=== PATIENT | female | born 1975 | race Caucasian/White ===

== ENCOUNTER → 2016-10-30 | Outpatient (CLI) | payer OTHER ==
--- NOTE | 2016-10-30 14:50 | REP ---
PELVIC ULTRASOUND: Real-time sonographic evaluation of the pelvis performed utilized transabdominal and endovaginal technique. Bladder measures 11.4 x 8.4 x 11.3 cm. Uterus measures 7.0 x 3.7 x 5.1 cm. Endometrial thickness is 2 mm. In the lower uterine segment there is a focal hyperechoic area 8 mm in diameter which may represent and endometrial polyp. Blood flow is seen into this region with duplex Doppler evaluation. Uterus is retroverted. Right ovary measures 3.0 x 1.5 x 2.5 cm and left ovary 2.8 x 1.1 x 2.4 cm. There is no evidence of ovarian torsion or blood flow seen in each ovary with duplex Doppler evaluation, RI of the right ovary 0.87 and left ovary 0.65. Small paraovarian cystic structure on the left measures 8 x 6 x 9 mm. There is no free fluid. There is a posterior subserosal fibroid identified measuring 1.3 x 0.7 x 1.6 cm. IMPRESSION: Small posterior subserosal fibroid. Focal hyperechoic area in the endometrium of the lower uterine segment and may represent an endometrial polyp 8 mm in diameter. Trace fluid in the endometrial cavity. No torsion. Signed by Darin Levi MD 10/31/2016 09:46 A
== END ==
LOC: M RAD 11:33
PROVIDERS: ATTEND Physician Assistant
DX: N93.9 Abnormal uterine and vaginal bleeding, unspecified (principal)

== ENCOUNTER → 2016-10-30 | Outpatient (CLI) | payer OTHER ==
[2016-10-30 10:29] LABS: BASO % 0.4 % (0.0-1.0); EOS # 0.3 K/mm3 (0.0-0.50); EOS % 3.9 % (0.0-3.0); LARGE UNSTAINED CELL # 0.1 K/mm3 (0.0-0.4); LYMPH # 1.8 K/mm3 (1.5-4.5); LYMPH % 22.8 % (24.0-44.0); MEAN CORPUSCULAR HEMOGLOBIN 28.1 pg (27.0-33.0); MEAN CORPUSCULAR HGB CONC 32.5 g/dl (32.0-36.5); MEAN CORPUSCULAR VOLUME 86.6 fl (80.0-96.0); MONO # 0.4 K/mm3 (0.0-0.8); MONO % 4.7 % (0.0-5.0); NEUTROPHILS # 5.1 K/mm3 (1.8-7.7); NEUTROPHILS % 67.3 % (36.0-66.0); PLATELET COUNT, AUTOMATED 312 k/mm3 (150-450); RED CELL DISTRIBUTION WIDTH 14.7 % (11.5-14.5); WHITE BLOOD COUNT 7.5 K/mm3 (4.0-10.0)
[2016-10-30 10:54] LABS: PERCENT SATURATION 10.7 % (13.2-37.4)
== END ==
LOC: M LAB 09:50
PROVIDERS: ATTEND Physician Assistant
DX: N93.9 Abnormal uterine and vaginal bleeding, unspecified (principal)

== ENCOUNTER → 2016-11-13 | Outpatient (REF) | payer OTHER ==
[2016-11-13 18:58] LABS: FOLLICLE STIMULATING HORMONE 2.5 mIU/mL; LUTEINIZING HORMONE 1.5 mIU/mL
[2016-11-13 19:01] LABS: HCG, SERUM QUANTITATIVE < 1.0 MIU/ML
[2016-11-13 19:20] LABS: BASO % 0.5 % (0.0-1.0); EOS # 0.6 K/mm3 (0.0-0.50); EOS % 5.2 % (0.0-3.0); LARGE UNSTAINED CELL # 0.2 K/mm3 (0.0-0.4); LARGE UNSTAINED CELL % 1.4 % (0.0-4.0); LYMPH # 2.5 K/mm3 (1.5-4.5); LYMPH % 22.1 % (24.0-44.0); MEAN CORPUSCULAR HEMOGLOBIN 28.4 pg (27.0-33.0); MEAN CORPUSCULAR HGB CONC 31.9 g/dl (32.0-36.5); MEAN CORPUSCULAR VOLUME 88.8 fl (80.0-96.0); MONO # 0.4 K/mm3 (0.0-0.8); MONO % 3.8 % (0.0-5.0); NEUTROPHILS # 7.3 K/mm3 (1.8-7.7); PLATELET COUNT, AUTOMATED 318 k/mm3 (150-450)
[2016-11-14 14:51] LABS: WHITE BLOOD COUNT 10.9 K/mm3 (4.0-10.0)
== END ==
LOC: M LAB REF 16:49
PROVIDERS: ATTEND Obstetrics & Gynecology
DX: N92.0 Excessive and frequent menstruation with regular cycle (principal)

== ENCOUNTER 2017-02-26 05:39 | Day surgery (SDC) | payer OTHER ==
[~2017-02-26] VITALS: Ht 167.6 cm; Wt 95.7 kg
[~2017-02-26 05:39] MED LIST: ADV250INH INH; ALBU17IN INH; IRON65TA PO; LORA10TA2 PO; MULT1TAB10 PO; TYLE325T5 PO; birth control pill PO
[2017-02-26] MEDS ORDERED: LR 1,000 ML IV ONE (06:00)
[2017-02-26] MEDS ORDERED: CLINDAMYCIN 900 MG in APPROPRIATE DILUENT 1 EA IV ONE (06:00)
[2017-02-26] MEDS ORDERED: ACETAMINOPHEN 650 MG SUPP PR ONE (06:00)
[2017-02-26 06:12] LABS: MEAN CORPUSCULAR HEMOGLOBIN 29.7 pg (27.0-33.0); MEAN CORPUSCULAR HGB CONC 33.7 g/dl (32.0-36.5); MEAN CORPUSCULAR VOLUME 88.3 fl (80.0-96.0); RED CELL DISTRIBUTION WIDTH 14.5 % (11.5-14.5); WHITE BLOOD COUNT 7.4 K/mm3 (4.0-10.0)
[2017-02-26 07:56] LABS: CONTROL LINE UCG INT CTR LINE PRESENT
[2017-02-26] MEDS ORDERED: ALBUTEROL SULFATE 2.5 MG/0.5 ML INH NEB SOLN As Ordered ONE (08:36)
[2017-02-26] MEDS ORDERED: SCOPOLAMINE 1.5 MG TRANSDERMAL As Ordered ONE (08:36)
[2017-02-26] MEDS ORDERED: SCOPOLAMINE 1.5 MG TRANSDERMAL TOP ONE (08:45)
[2017-02-26] MEDS ORDERED: ALBUTEROL SULFATE 2.5 MG/0.5 ML INH NEB SOLN INH ONE (08:45)
[2017-02-26] MEDS ORDERED: PROPOFOL 200 MG/20 ML VIAL As Ordered ONE (09:03)
[2017-02-26] MEDS ORDERED: ONDANSETRON 4MG/2ML VIAL (J2405) As Ordered ONE (09:03)
[2017-02-26] MEDS ORDERED: LIDOCAINE 2% INJ 100 MG/5 ML SDV (FOR ANES.) As Ordered ONE (09:03)
[2017-02-26] MEDS ORDERED: ROCURONIUM BROMIDE 50 MG/5 ML VIAL As Ordered ONE ×2 (09:03→13:00)
[2017-02-26] MEDS ORDERED: MIDAZOLAM INJ 2 MG/2 ML VIAL (J2250) As Ordered ONE (09:04)
[2017-02-26] MEDS ORDERED: fentaNYL 100 MCG/2 ML INJECTION (J3010) As Ordered ONE ×3 (09:04→12:59)
[2017-02-26] MEDS ORDERED: FLUORESCEIN 10% (100MG/ML) 5 ML VIAL As Ordered ONE (09:05)
[2017-02-26] MEDS ORDERED: BUPIVACAINE/EPIN 0.25% 30 ML VIAL As Ordered ONE (09:06)
[2017-02-26] MEDS ORDERED: ACETAMINOPHEN 650 MG SUPP As Ordered ONE (09:06)
[2017-02-26] MEDS ORDERED: OXYC1TAB23 PO (09:59)
[2017-02-26] MEDS: IBUPROFEN 800 MG TAB PO SCH ×3 (12:00→23:36)
[2017-02-26] MEDS: SIMETHICONE 80 MG CHEW TAB PO SCH ×3 (12:00→23:36)
[2017-02-26] MEDS ORDERED: SUGAMMADEX SODIUM 500 MG/5 ML VIAL (BRIDION) As Ordered ONE (13:00)
[2017-02-26] MEDS ORDERED: KETOROLAC 60 MG/2 ML VIAL (J1885) As Ordered ONE (13:00)
[2017-02-26] MEDS: fentaNYL 100 MCG/2 ML INJECTION (J3010) IV PRN ×4 (13:02→13:25)
[2017-02-26] MEDS ORDERED: PROMETHAZINE INJ 25 MG/ML VIAL (J2550) IV PRN (13:15)
[2017-02-26] MEDS ORDERED: diphenhydrAMINE INJ 50MG/ML VIAL (J1200) IV PRN (13:15)
[2017-02-26] MEDS ORDERED: LR 1,000 ML IV SCH (13:15)
[2017-02-26] MEDS ORDERED: PERCOCET 5MG/325MG TAB PO PRN (13:15)
[2017-02-26] MEDS ORDERED: ONDANSETRON 4MG/2ML VIAL (J2405) IV PRN (13:15)
[2017-02-26] MEDS: LR 1,000 ML IV SCH ×2 (13:15→21:15)
[2017-02-26] MEDS ORDERED: METOCLOPRAMIDE INJ 10MG/2ML VIAL (J2765) IV PRN (13:15)
[2017-02-26] MEDS: HYDROmorphone HCL 1 MG/ML SYRINGE (J1170) IV PRN ×5 (13:35→14:05)
[2017-02-26 15:15] VITALS: BP 130/74
[2017-02-26 15:45] VITALS: BP 127/74
[2017-02-26 16:45] VITALS: BP 140/88
[2017-02-26 17:45] VITALS: BP 114/72
[2017-02-26 18:45] VITALS: BP 122/58
[2017-02-26 20:00] VITALS: BP 102/58
[2017-02-27] VITALS: BP 114/61
[2017-02-27 04:00] VITALS: BP 111/68
[2017-02-27] MEDS: PERCOCET 5MG/325MG TAB PO PRN ×2 (05:10→11:23)
[2017-02-27] MEDS: LR 1,000 ML IV SCH (05:15)
[2017-02-27] MEDS: IBUPROFEN 800 MG TAB PO SCH (06:16)
[2017-02-27] MEDS: SIMETHICONE 80 MG CHEW TAB PO SCH (06:16)
[2017-02-27 08:00] VITALS: BP 131/66
[2017-02-27] MEDS ORDERED: IBUP80TA PO (10:09)
--- NOTE | 2017-02-27 18:00 | RO ---
DATE OF PROCEDURE: 02/26/2017 Elisabeth is a 41-year-old female with extensive history of menometrorrhagia, fibroid uterus and endometrial polyp. After extensive counseling in the office a decision was made for robotic-assisted laparoscopic hysterectomy, removal of both tubes, possible hystereocopy. PREOPERATIVE DIAGNOSES: 1. Menometrorrhagia. 2. Fibroid uterus. 3. Endometrial polyp. POSTOPERATIVE DIAGNOSES: 1. Menometrorrhagia. 2. Fibroid uterus. 3. Endometrial polyp. 4. Dense bowel and omental adhesion to the anterior abdominal wall underneath the umbilicus. PROCEDURE: 1. Robotic-assisted laparoscopic hysterectomy. 2. Bilateral salpingectomies. 3. Cystoscopy. 4. Extensive lysis of adhesion. ANESTHESIA: General. SURGEON: Dr. Kent. HEAD OF DATA: Berna Shoemaker. COMPLICATIONS: None. ESTIMATED BLOOD LOSS: Approximately 100 mL. SPECIMEN SENT TO THE LAB: The uterus, cervix and tube. FINDINGS: Dense omental and bowel adhesions underneath the umbilicus down to the pelvic ball covering the lower pelvis. It took approximately 1 hour to dissect the adhesions down. On cystoscopy bilateral urethral jets were noted. No evidence of any bladder or urethral injury. PROCEDURE: After obtaining informed consent the patient was taken to the operating room where general anesthetic was found be adequate. She was then draped and prepped usual sterile fashion in the dorsal lithotomy position. At this point a Garvey catheter was placed in the bladder for drainage. We then placed the HUMI II uterine manipulator. Attention was then turned to the abdomen where a 10 mm infraumbilical incision was made using the Veress needle. The abdomen was insufflated with CO2 gas to approximately 3.5 liters. We then placed a 10/12 mm trocar under direct visualization for the robotic camera. Upon entering the abdominal cavity. Dense omental adhesions was found at the level of the umbilicus all the way down to the pelvis. We were able to put one 8 mm incision on the left side for robotic arm two. After placement of that arm. It was noted that the adhesions were so thick we could not assist port nor the robotic arm one. Using the Endo shear, blunt dissection was done to bring down the omental adhesions. Cautery was used where necessary. In the mid abdominal area, I was able to place another 8 mm port on the right side for robotic arm one. Using that port and a 5 mm scope we continued to dissect the omental and bowel adhesions down. This took approximately 1 hour to take down the adhesions. After freeing all the adhesions were then able to place the patient in steep Trendelenburg. The uterus, ovaries and tubes were identified. The tube was found to be somewhat adherent to the right pelvic sidewall. This was also freed up using the Endo shear. At this point the patient was placed in steep Trendelenburg. The robot was brought at a 45 degree angle at the right side and docked in usual fashion. In arm two, a bipolar grasper was placed and in arm one, the Endo shear was placed. I then unscrubbed and surgeon console and began the surgery. The infundibulopelvic ligament was visualized. The fallopian tube visualized, utero-ovarian ligament visualized. At this point the fallopian tube was held in tension. The mesosalpinx was transected to bring down the fallopian tube down to the utero-ovarian ligament. This was cauterized and cut using the bipolar grasper and the Endo shear. The round ligament was cauterized and cut in similar fashion. At this point the anterior leaflet of the broad ligament was dissected off to create a bladder flap. The posterior aspect dissected off in a similar fashion. Uterine artery skeletonized and the uterine artery was then cauterized using the bipolar grasper. This was also transected using the monopolar scissors. The opposite side was done in a similar fashion. After securing both the uterine arteries, we then pushed the bladder off the cervix and the anterior colpotomy was performed over the vaginal cuff manipulator. The posterior colpotomy was also completed in similar fashion. At this point the uterus and cervix as well as bilateral fallopian tubes were removed through the vagina. This was left in the vagina to maintain pneumoperitoneum. Pelvis copiously irrigated with normal saline and suctioned out. Good hemostasis noted. No evidence of any bleeding noted and bilateral ureters appeared to be within normal limits. The bladder shows no signs of injury. At this point the Endo shear was removed. Needle dumpster driver was placed and a 2-0 V-Loc suture was introduced through the assist port and the vaginal cuff closed in a running fashion using the 2-0 V-Loc suture. The peritoneum over the vaginal cuff was also closed. Good hemostasis noted. The suture was removed through the assist port and 1 mL of Furacin was given by the anesthesiologist for colposcopy. The robot was completely undocked. The bladder was retrograde filled with 250 mL of normal saline. Using a cystoscope after removal of the catheter bilateral urethral jets were noted. No evidence of any bladder injury noted in cystoscopy. The Garvey catheter was replaced back in the bladder for drainage and we then turned our attention to the abdomen where the robotic trocar sites were closed using #0 Vicryl in the fascia and #3-0 Vicryl in a subcuticular fashion on the skin. 0.25% Marcaine placed for postoperative pain. Dermabond placed to seal the incisions. The patient was then transferred to recovery room in stable condition.
== END 2017-02-27 11:50 | disposition home or self-care (01) ==
LOC: M SDC 05:39 → M PED 15:02 → M SDC 02-27 11:50
PROVIDERS: ATTEND Obstetrics & Gynecology
DX: N91.2 Amenorrhea, unspecified (principal); N73.6 Female pelvic peritoneal adhesions (postinfective); N80.0 Endometriosis of uterus; N84.0 Polyp of corpus uteri; N72 Inflammatory disease of cervix uteri; K21.9 Gastro-esophageal reflux disease without esophagitis; D64.9 Anemia, unspecified; J45.909 Unspecified asthma, uncomplicated; Z79.899 Other long term (current) drug therapy; Z88.0 Allergy status to penicillin; Z88.2 Allergy status to sulfonamides; Z91.030 Bee allergy status
CPT/HCPCS: 36415; 49329; 58571; 84703; 85027; 86850; 86900; 86901; 88309; J1170; J1885; J2250; J2405; J3010

== ENCOUNTER → 2017-04-22 | Outpatient (CLI) | payer OTHER ==
[~2017-04-22] MED LIST changes: +IBUP80TA PO; +OXYC1TAB23 PO
[2017-04-22 11:16] LABS: BASO % 0.4 % (0.0-1.0); EOS # 0.3 K/mm3 (0.0-0.50); EOS % 3.9 % (0.0-3.0); LYMPH # 1.8 K/mm3 (1.5-4.5); LYMPH % 20.6 % (24.0-44.0); MEAN CORPUSCULAR HEMOGLOBIN 29.2 pg (27.0-33.0); MEAN CORPUSCULAR HGB CONC 33.5 g/dl (32.0-36.5); MEAN CORPUSCULAR VOLUME 87.3 fl (80.0-96.0); MONO # 0.4 K/mm3 (0.0-0.8); MONO % 4.5 % (0.0-5.0); NEUTROPHILS # 5.8 K/mm3 (1.8-7.7); NEUTROPHILS % 69.6 % (36.0-66.0); RED CELL DISTRIBUTION WIDTH 14.9 % (11.5-14.5); WHITE BLOOD COUNT 8.3 K/mm3 (4.0-10.0)
--- NOTE | 2017-04-22 11:19 | REP ---
Chest two views HISTORY: Chest pain Comparison: None The lungs are clear. The heart is normal in size. The pulmonary vasculature is normal in appearance. The bony structure is intact. IMPRESSION: No acute disease. Signed by Fabio Pisano MD 04/22/2017 11:11 A
[2017-04-22 12:58] LABS: ALBUMIN 3.8 GM/DL (3.2-5.2); ALBUMIN/GLOBULIN RATIO 1.09 (1.00-1.93); ALKALINE PHOSPHATASE 78 U/L (45-117); ALT/SGPT 53 U/L (12-78); ANION GAP 8 MEQ/L (8-16); AST/SGOT 27 U/L (15-37); BILIRUBIN,TOTAL 0.6 MG/DL (0.2-1.0); BLOOD UREA NITROGEN 8 MG/DL (7-18); CALCIUM LEVEL 9.1 MG/DL (8.5-10.1); CARBON DIOXIDE LEVEL 27 MEQ/L (21-32); CHLORIDE LEVEL 106 MEQ/L (98-107); CHOLESTEROL LEVEL 161 MG/DL (<200); CREATININE FOR GFR 0.85 MG/DL (0.55-1.02); GLOMERULAR FILTRATION RATE > 60.0 (>58); GLUCOSE, FASTING 116 MG/DL (70-105); POTASSIUM SERUM 4.2 MEQ/L (3.5-5.1); SODIUM LEVEL 141 MEQ/L (136-145); T UPTAKE 28 % (30-39); THYROXINE (T4) 10.8 UG/DL (4.5-12.0); TOTAL PROTEIN 7.3 GM/DL (6.4-8.2); TRIGLYCERIDES LEVEL 147 MG/DL (<150)
--- NOTE | 2017-04-23 22:25 | ECGEPIP ---
Stationary ECG Study [facility] Test Date: 2017-04-22 Pat Name: LEOBARDO MANN Department: Room: - Gender: F Group Social Worker: KATHY : 1975 Requested By: Lala Chino Order Number: [id number] Reading MD: Roberto Contreras Measurements Intervals [place] Rate: 58 P: 29 MT: 145 QRS: -8 QRSD: 105 T: 5 QT: 415 QTc: 408 Interpretive Statements SINUS BRADYCARDIA NO PRIOR TRACING IN THE SYSTEM Electronically Signed On 04-23-2017 22:25:01 EDT by Roberto Contreras
== END ==
LOC: M LAB 10:35
PROVIDERS: ATTEND Physician Assistant Medical
DX: R07.9 Chest pain, unspecified (principal)

== ENCOUNTER → 2017-12-12 | Outpatient (REF) | payer OTHER ==
[2017-12-12 16:32] LABS: HEMATOCRIT 39.2 % (36.0-47.0); HEMOGLOBIN 12.9 g/dl (12.0-15.5); MEAN CORPUSCULAR HEMOGLOBIN 29.9 pg (27.0-33.0); MEAN CORPUSCULAR HGB CONC 32.9 g/dl (32.0-36.5); PLATELET COUNT, AUTOMATED 292 10^3/uL (150-450); RED BLOOD COUNT 4.31 10^6/uL (4.00-5.40); RED CELL DISTRIBUTION WIDTH 13.3 % (11.5-14.5); WHITE BLOOD COUNT 10.8 10^3/uL (4.0-10.0)
[2017-12-12 16:39] LABS: TOTAL 25(OH) VITAMIN D 18.6 NG/ML (30.0-100.0)
[2017-12-12 16:47] LABS: ALBUMIN 3.9 GM/DL (3.2-5.2); ALBUMIN/GLOBULIN RATIO 1.15 (1.00-1.93); ALKALINE PHOSPHATASE 77 U/L (45-117); ALT/SGPT 23 U/L (12-78); ANION GAP 6 MEQ/L (8-16); AST/SGOT 20 U/L (7-37); BILIRUBIN,TOTAL 1.2 MG/DL (0.2-1.0); BLOOD UREA NITROGEN 8 MG/DL (7-18); CALCIUM LEVEL 8.9 MG/DL (8.5-10.1); CARBON DIOXIDE LEVEL 29 MEQ/L (21-32); CHLORIDE LEVEL 107 MEQ/L (98-107); CREATININE FOR GFR 0.74 MG/DL (0.55-1.30); FREE T4 0.91 NG/DL (0.76-1.46); GLOMERULAR FILTRATION RATE > 60.0 (>58); GLUCOSE, FASTING 81 MG/DL (70-100); POTASSIUM SERUM 4.1 MEQ/L (3.5-5.1); SODIUM LEVEL 142 MEQ/L (136-145); TOTAL PROTEIN 7.3 GM/DL (6.4-8.2)
[2017-12-12 17:17] LABS: HIV 1&2 SCREEN CENTAUR NEGATIVE (NEGATIVE)
== END ==
LOC: M SFHCPLAZ 14:27
DX: F33.1 Major depressive disorder, recurrent, moderate (principal); R53.83 Other fatigue
CPT/HCPCS: 84443

== ENCOUNTER → 2018-11-03 | Outpatient (REF) | payer OTHER ==
[~2018-11-03] MED LIST changes: +LORA-243 PO; -LORA10TA2 PO
[2018-11-03 19:17] LABS: APPEARANCE, URINE CLEAR (CLEAR); BACTERIA, URINE AUTO NEGATIVE (NEGATIVE); BILIRUBIN, URINE AUTO NEGATIVE (NEGATIVE); BLOOD, URINE BLOOD NEGATIVE (NEGATIVE); COLOR, URINE YELLOW (YELLOW); GLUCOSE, URINE (UA) AUTO NEGATIVE (NEGATIVE); KETONE, URINE AUTO NEGATIVE (NEGATIVE); LEUKOCYTE ESTERASE, URINE AUTO NEGATIVE (NEGATIVE); MUCUS, URINE SMALL (NEGATIVE); NITRITE, URINE AUTO NEGATIVE (NEGATIVE); PROTEIN, URINE AUTO NEGATIVE (NEGATIVE); RBC, URINE AUTO 1 /HPF (0-3); SPECIFIC GRAVITY URINE AUTO 1.013 (1.002-1.035); SQUAMOUS EPITHELIAL CELL UR AU 2 /HPF (0-6); UROBILINOGEN, URINE AUTO 0.2 mg/dL (0.0-2.0); WBC, URINE AUTO 1 /HPF (0-3)
[2018-11-03 19:53] LABS: MAGNESIUM LEVEL 2.6 MG/DL (1.8-2.4)
[2018-11-03 20:01] LABS: TOTAL 25(OH) VITAMIN D 17.2 NG/ML (30.0-100.0)
[2018-11-03 23:08] LABS: CHLAMYDIA DNA AMPLIFICATION NEGATIVE (NEGATIVE); GC DNA AMPLIFICATION NEGATIVE (NEGATIVE)
== END ==
LOC: M SFHCPLAZ 14:19
PROVIDERS: ATTEND Nurse Practitioner Family
DX: E55.9 Vitamin D deficiency, unspecified (principal); Z11.3 Encounter for screening for infections with a predominantly sexual mode of transmission; N39.3 Stress incontinence (female) (male)

== ENCOUNTER 2020-10-18 10:22 | Emergency (ER) | payer OTHER ==
[~2020-10-18] VITALS: Ht 167.6 cm; Wt 85.7 kg
[2020-10-18] MEDS ORDERED: ACETAMINOPHEN 325 MG TAB PO ONE (11:30)
[2020-10-18] MEDS ORDERED: NEOSPORIN OINT 0.9 GM PKT TOP ONE (11:30)
[2020-10-18] MEDS ORDERED: ONDANSETRON 4 MG ORAL DISINTEGRATING TAB PO ONE (11:30)
--- NOTE | 2020-10-18 11:31 | REP ---
INDICATION: trauma, pain over 1st mcp. COMPARISON: None. TECHNIQUE: Four views of the right hand are obtained. FINDINGS: Four views of the right hand demonstrate normal bones, joints, and soft tissues. No fracture or subluxation is seen. No opaque foreign body noted. IMPRESSION: Negative right hand series. <Electronically signed by Saw Woodward > 10/18/20 [id number]
--- NOTE | 2020-10-18 11:47 | REP ---
INDICATION: posterior head trauma, +LOC. COMPARISON: None. TECHNIQUE: Helical scanning is acquired. 5 mm axial images were reformatted. Coronal MPR images were generated. FINDINGS: Bone window settings demonstrate an intact bony calvarium. There is no evidence of skull fracture or incidental bony calvarial lesion. The visualized paranasal sinuses appear clear. No intraorbital abnormality is seen. On soft tissue window setting images; the lateral, third, and fourth ventricles are normal in size and position. Levi-white differentiation pattern is normal above and below the tentorium. There are is no evidence of intracranial hemorrhage. No mass, edema, infarction, or midline shift is seen. No extra-axial fluid collection is appreciated. IMPRESSION: Negative noncontrast head CT. <Electronically signed by Saw Woodward > 10/18/20 [id number]
--- NOTE | 2020-10-18 11:48 | REP ---
INDICATION: trauma. COMPARISON: None. TECHNIQUE: Helical scanning is acquired and overlapping 2 mm high resolution axial images were generated and reviewed at bone and soft tissue window settings. Coronal and sagittal multiplanar re-formations images are generated. FINDINGS: There is no evidence of cervical spine element fracture. No skull base fracture is seen. Cervical vertebral body heights are preserved. Alignment is normal. Facet joints are normally aligned bilaterally at each cervical level on multiplanar re-formations images. There is no evidence of intraspinal or paraspinal hematoma. No extra vertebral abnormality is seen. IMPRESSION: Negative CT study of the cervical spine without contrast. No fracture seen. <Electronically signed by Saw Woodward > 10/18/20 0036
[2020-10-18] MEDS ORDERED: ONDA4TAB6 PO (12:18)
[2020-10-18 12:25] VITALS: BP 134/81
== END 2020-10-18 12:33 | disposition home or self-care (01) ==
LOC: M ED 10:22
DX: S06.0X9A Concussion with loss of consciousness of unspecified duration, initial encounter (principal); S60.511A Abrasion of right hand, initial encounter; S63.90XA Sprain of unspecified part of unspecified wrist and hand, initial encounter; W01.198A Fall on same level from slipping, tripping and stumbling with subsequent striking against other object, initial encounter; Y92.019 Unspecified place in single-family (private) house as the place of occurrence of the external cause; Y93.9 Activity, unspecified; Y99.9 Unspecified external cause status; Z88.0 Allergy status to penicillin; Z88.2 Allergy status to sulfonamides; Z91.013 Allergy to seafood; Z91.030 Bee allergy status
CPT/HCPCS: 70450; 72125; 73130; 99284; Q0162

== ENCOUNTER 2021-01-18 09:58 | Emergency (ER) | payer OTHER ==
[~2021-01-18] VITALS: Ht 165.1 cm; Wt 83.6 kg
[~2021-01-18 09:58] MED LIST changes: +ONDA4TAB6 PO
[2021-01-18 12:05] LABS: BASO # 0.1 10^3/uL (0.0-0.2); BASO % 0.6 % (0.0-1.0); EOS # 0.6 10^3/uL (0.0-0.5); EOS % 5.3 % (0.0-3.0); HEMATOCRIT 41.5 % (36.0-47.0); HEMOGLOBIN 13.6 g/dl (12.0-15.5); LYMPH # 2.1 10^3/uL (1.5-5.0); LYMPH % 19.5 % (24.0-44.0); MEAN CORPUSCULAR HEMOGLOBIN 30.8 pg (27.0-33.0); MEAN CORPUSCULAR HGB CONC 32.8 g/dl (32.0-36.5); MEAN CORPUSCULAR VOLUME 93.9 fl (80.0-96.0); MONO # 0.6 10^3/uL (0.0-0.8); NEUTROPHILS # 7.3 10^3/uL (1.5-8.5); NEUTROPHILS % 68.1 % (36.0-66.0); PLATELET COUNT, AUTOMATED 323 10^3/uL (150-450); RED BLOOD COUNT 4.42 10^6/uL (4.00-5.40); WHITE BLOOD COUNT 10.7 10^3/uL (4.0-10.0)
[2021-01-18 12:59] VITALS: BP 117/77
--- NOTE | 2021-01-18 17:12 | ECGEPIP ---
[facility] - ED Test Date: 2021-01-18 Pat Name: LEOBARDO MANN Department: Room: - Gender: Female Disability Rater: FADIA : 1975 Requested By: Kay Vail Order Number: [id number] Reading MD: Slade Ellsworth Measurements Intervals [place] Rate: 58 P: 42 NH: 142 QRS: -17 QRSD: 98 T: 30 QT: 424 QTc: 416 Interpretive Statements Sinus bradycardia Similar to tracing done 04-22-17 Electronically Signed on 01-18-2021 17:12:19 EDT by Slade Ellsworth
== END 2021-01-18 13:13 | disposition home or self-care (01) ==
LOC: M ED 09:58
DX: R51.9 Headache, unspecified (principal); R00.2 Palpitations; R00.1 Bradycardia, unspecified; J30.1 Allergic rhinitis due to pollen; Z91.013 Allergy to seafood; Z91.030 Bee allergy status; Z88.0 Allergy status to penicillin; Z88.2 Allergy status to sulfonamides

== ENCOUNTER → 2021-01-25 | Outpatient (REF) | payer OTHER ==
[2021-01-25 17:57] LABS: FREE T4 0.82 NG/DL (0.76-1.46); THYROID STIMULATING HORMONE 0.857 uIU/ML (0.358-3.740)
== END ==
LOC: M SFHCPLAZ 14:51
PROVIDERS: ATTEND Nurse Practitioner Family
DX: E55.9 Vitamin D deficiency, unspecified (principal); R00.2 Palpitations

== ENCOUNTER 2021-02-15 14:30 | Emergency (ER) | payer OTHER ==
[~2021-02-15] VITALS: Ht 167.6 cm; Wt 63.6 kg
--- NOTE | 2021-02-15 15:02 | REP ---
INDICATION: neuro sx COMPARISON: 10/18/2020 TECHNIQUE: Axial noncontrast images from the skull base to the vertex with coronal reformations. This CT examination was performed using the following dose reduction techniques: Automated exposure control, adjustment of mA and/or kv according to the patient's size, and use of iterative reconstruction technique. FINDINGS: The ventricles, sulci, and cisterns are normal in position and appearance. Levi-white differentiation is maintained. No acute intracranial hemorrhage, mass/mass effect, pathology or trauma/injury. No evidence for acute infarction. No extra-axial fluid collection. Calvarium is intact. Paranasal sinuses and mastoid air cells are clear. IMPRESSION: Normal noncontrast head CT. No evidence for acute intracranial pathology or trauma/injury. <Electronically signed by David Darden > 02/15/21 [id number]
[2021-02-15] MEDS ORDERED: CALC600T57 (15:46)
[2021-02-15] MEDS ORDERED: ASPI81TA26 PO (15:46)
[2021-02-15] MEDS ORDERED: VITA50005 (15:46)
[2021-02-15 15:57] LABS: BASO # 0.1 10^3/uL (0.0-0.2); BASO % 0.8 % (0.0-1.0); EOS # 0.4 10^3/uL (0.0-0.5); EOS % 4.4 % (0.0-3.0); HEMATOCRIT 36.8 % (36.0-47.0); HEMOGLOBIN 12.4 g/dl (12.0-15.5); LYMPH # 2.3 10^3/uL (1.5-5.0); LYMPH % 26.5 % (24.0-44.0); MEAN CORPUSCULAR HEMOGLOBIN 30.9 pg (27.0-33.0); MEAN CORPUSCULAR HGB CONC 33.7 g/dl (32.0-36.5); MEAN CORPUSCULAR VOLUME 91.8 fl (80.0-96.0); MONO # 0.6 10^3/uL (0.0-0.8); NEUTROPHILS # 5.4 10^3/uL (1.5-8.5); NEUTROPHILS % 60.8 % (36.0-66.0); PLATELET COUNT, AUTOMATED 321 10^3/uL (150-450); RED BLOOD COUNT 4.01 10^6/uL (4.00-5.40); WHITE BLOOD COUNT 8.8 10^3/uL (4.0-10.0)
--- NOTE | 2021-02-15 15:59 | REP ---
INDICATION: CVA. COMPARISON: 04/22/2017. TECHNIQUE: Single portable AP view of the chest was performed. FINDINGS: There is no acute infiltrate or pulmonary edema. Lungs are clear. The heart is not significantly enlarged. The mediastinal silhouette is unremarkable. The visualized osseous structures are intact. IMPRESSION: No acute pulmonary disease. <Electronically signed by Darin Levi > 02/15/21 [id number]
[2021-02-15 16:23] LABS: BLOOD UREA NITROGEN 13 MG/DL (7-18); CALCIUM LEVEL 9.2 MG/DL (8.5-10.1); CARBON DIOXIDE LEVEL 28 MEQ/L (21-32); CHLORIDE LEVEL 108 MEQ/L (98-107); CK-MB VALUE MASS 2.3 NG/ML (<3.6); CPK CREATINE PHOSPHOKINASE 391 U/L (26-192); CREATININE FOR GFR 0.79 MG/DL (0.55-1.30); GLOMERULAR FILTRATION RATE > 60.0 (>58); GLUCOSE, FASTING 90 MG/DL (70-100); MB/CK RELATIVE INDEX 0.59 (< OR =4); POTASSIUM SERUM 3.6 MEQ/L (3.5-5.1); SODIUM LEVEL 142 MEQ/L (136-145); TROPONIN I < 0.02 NG/ML (< 0.10)
[2021-02-15 20:00] VITALS: BP 135/87
--- NOTE | 2021-02-15 20:05 | ECGEPIP ---
[facility] - ED Test Date: 2021-02-15 Pat Name: LEOBARDO MANN Department: Room: - Gender: Female Legal Contracts Specialist: : 1975 Requested By: NICOLAS Marquez Order Number: [id number] Reading MD: Finn Mendoza Measurements Intervals [place] Rate: 62 P: 20 [place]: 142 QRS: -12 QRSD: 96 T: 21 QT: 450 QTc: 456 Interpretive Statements Normal sinus rhythm POOR R WAVE PROGRESSION SIMILAR TO 01/18/21 Electronically Signed on 02-15-2021 20:05:13 EDT by Finn Mendoza
--- NOTE | 2021-02-15 21:28 | REPVR ---
PROCEDURE INFORMATION: Exam: MRA Head Without Contrast; Arteriography Exam date and time: 02/15/2021 4:47 PM Age: 45 years old Clinical indication: Numbness; Additional info: Right sided facial numbness; Multiple vague neuro SX; ? Ms TECHNIQUE: Imaging protocol: Magnetic resonance angiography head without contrast. Exam focused on the arteries. COMPARISON: CT Head without contrast 02/15/2021 2:52 PM FINDINGS: There is normal [id number] flow related signal intensity in the bilateral distal internal carotid arteries through the carotid termini as well as within the distal segments of the vertebral arteries. Normal flow related signal intensity within the basilar artery, anterior, middle and posterior cerebral arteries. No high-grade stenosis, occlusion, aneurysm, or other acute abnormality of the [place] vasculature. IMPRESSION: No high-grade stenosis, occlusion, or aneurysm of the [place] vasculature. Electronically signed by: Duglas Batista On 02/15/2021 21:27:53 PM
--- NOTE | 2021-02-15 21:34 | REPVR ---
PROCEDURE INFORMATION: Exam: MR Head Without Contrast Exam date and time: 02/15/2021 4:47 PM Age: 45 years old Clinical indication: Numbness / parasthesia; Right; Additional info: Right sided facial numbness; Multiple vague neuro SX; ? Ms TECHNIQUE: Imaging protocol: MR of the head without contrast. COMPARISON: CT Head without contrast 02/15/2021 2:52 PM FINDINGS: Limitations: Study is moderately degraded by patient motion artifact. Brain: There are a small number of scattered foci of white matter T2 hyperintensity, nonspecific but commonly secondary to chronic small vessel ischemic change. Questionable cortical T2 hyperintensity within the anterior cingulate and paramedian frontal gyri (for example series 801, image 16), although this is in the setting of moderate patient motion artifact and may be artifactual. No acute ischemic infarction. No acute intracranial hemorrhage. Cerebral ventricles: No ventriculomegaly. Bones/joints: Unremarkable. Paranasal sinuses: Normal as visualized. Mastoid air cells: No mastoid effusion. Orbital cavity: Unremarkable. Soft tissues: Unremarkable. IMPRESSION: 1. No acute ischemic infarction nor specific imaging features to suggest demyelinating disease. 2. Questionable cortical T2 hyperintensity/edema within the bilateral anterior cingulate and paramedian frontal gyri, which given the moderate patient motion artifact is potentially artifactual although if there are persistent neurologic symptoms would consider repeat MRI with contrast and if there is any clinical concern for infection, correlation with lumbar puncture. Electronically signed by: Duglas Batista On 02/15/2021 21:34:51 PM
--- NOTE | 2021-02-17 07:54 | ED PDOC ---
Post-Departure Follow-Up mri brain faxed to dr guan and eli yost for fu Rogers Montejo MD Feb 17, 2021 07:54
== END 2021-02-15 22:09 | disposition home or self-care (01) ==
LOC: M ED 14:30
DX: R20.2 Paresthesia of skin (principal); H53.8 Other visual disturbances; R07.9 Chest pain, unspecified; R06.02 Shortness of breath; R94.02 Abnormal brain scan; E11.9 Type 2 diabetes mellitus without complications; Z88.0 Allergy status to penicillin; Z88.2 Allergy status to sulfonamides; Z91.013 Allergy to seafood; Z91.030 Bee allergy status; Z79.02 Long term (current) use of antithrombotics/antiplatelets; Z79.82 Long term (current) use of aspirin

== ENCOUNTER 2021-06-28 13:00 | Emergency (ER) | payer OTHER ==
[~2021-06-28] VITALS: Ht 170.2 cm; Wt 85.3 kg
[2021-06-28 13:00] VITALS: BP 122/62
[~2021-06-28 13:00] MED LIST changes: +ASPI81TA26 PO; +CALC600T57; +ERGO500029
--- OUTSIDE RECORDS SUMMARY | 2021-06-28 13:10 | CCD ---
Author Author [facility] Address Unknown Phone Unavailable Support Name Relationship Address Phone KVNG STYLES Next Of Kin [address] [facility] [address] [place] [address] AMRIK Next Of Kin [address] [facility] [address] [place] [address] [place] [address] JOSEPH SLOAN Next Of Kin [place] [id number] She Cantu DDS Next Of Kin [address] [place], [place] [id number] Joce Kothari Next Of Kin Unknown Unavaila ble Koemei Next Of Kin [address] [place] [address] UE Next Of Kin Unknown Unavailable SELF EMPLOYED [place] [address] - SANIYA AND KATHERINE PEREZ Next Of Kin [address] [facility] [address] [place] [address] KATHERINE KOTHARI Next Of Kin [address] [facility] [address] [place] [address] LOCO Next Of Kin [address] [place] [address] BEATRIZ SLOAN Next Of Kin [address] [place] [address] Pepe REYESStephenShe Next Of Kin [address] [place] [address] KIDNEY, RADHA ECON [address] [place] [address] Unavailable Kvng Styles ECON [address] [facility] [address] [place] [address] Unavailable ANA KOTHARI ECON [address] [facility] [address] [place] [address] Unavailable Care Team Providers Care Line Person Name Role Phone ANTECOL, Nate VALENZUELA MD Unavailable Unavailable ANTECOL, Nate VALENZUELA MD Unavailable Unavailable ANTECOL, Nate VALENZUELA MD Unavailable Unavailable ANTECOL, Nate VALENZUELA MD Unavailable Unavailable ANTECOL, Nate VALENZUELA MD Unavailable Unavailable ANTECOL, Nate VALENZUELA MD Unavailable Unavailable ANTECOL, Nate VALENZUELA MD Unavailable Unavailable ANTECOL, Nate VALENZUELA MD Unavailable Unavailable ANTECOL, Nate VALENZUELA MD Unavailable Unavailable ANTECOL, Nate VALENZUELA MD Unavailable Unavailable ANTECOL, Nate VALENZUELA MD Unavailable Unavailable ANTECOL, Nate VALENZUELA MD Unavailable Unavailable ANTECOL, Nate VALENZUELA MD Unavailable Unavailable ANTECOL, Nate VALENZUELA MD Unavailable Unavailable ANTECOL, Nate VALENZUELA MD Unavailable Unavailable ANTECOL, Nate VALENZUELA MD Unavailable Unavailable ANTECOL, Nate VALENZUELA MD Unavailable Unavailable ANTECOL, Nate VALENZUELA MD Unavailable Unavailable ANTECOL, Nate VALENZUELA MD Unavailable Unavailable ANTECOL, Nate VALENZUELA MD Unavailable Unavailable ANTECOL, Nate VALENZUELA MD Unavailable Unavailable ANTECOL, Nate VALENZUELA MD Unavailable Unavailable ANTECOL, Nate VALENZUELA MD Unavailable Unavailable ANTECOL, Nate VALENZUELA MD Unavailable Unavailable ANTECOL, Nate VALENZUELA MD Unavailable Unavailable ANTECOL, Nate VALENZUELA MD Unavailable Unavailable ANTECOL, Nate VALENZUELA MD Unavailable Unavailable ANTECOL, Nate VALENZUELA MD Unavailable Unavailable ANTECOL, Nate VALENZUELA MD Unavailable Unavailable ANTECOL, Nate VALENZUELA MD Unavailable Unavailable ANTECOL, Nate VALENZUELA MD Unavailable Unavailable ANTECOL, Nate VALENZUELA MD Unavailable Unavailable ANTECOL, Nate VALENZUELA MD Unavailable Unavailable ANTECOL, Nate VALENZUELA MD Unavailable Unavailable ANTECOL, Nate VALENZUELA MD Unavailable Unavailable ANTECOL, Nate VALENZUELA MD Unavailable Unavailable ANTECOL, Nate VALENZUELA MD Unavailable Unavailable ANTECOL, Nate VALENZUELA MD Unavailable Unavailable ANTECOL, Nate VALENZUELA MD Unavailable Unavailable ANTECOL, Nate VALENZUELA MD Unavailable Unavailable ANTECOL, Nate VALENZUELA MD Unavailable Unavailable ANTECOL, Nate VALENZUELA MD Unavailable Unavailable ANTECOL, Nate VALENZUELA MD Unavailable Unavailable ANTECOL, Nate VALENZUELA MD Unavailable Unavailable ANTECOL, Nate VALENZUELA MD Unavailable Unavailable ANTECOL, Nate VALENZUELA MD Unavailable Unavailable ANTECOL, Nate VALENZUELA MD Unavailable Unavailable ANTECOL, Nate VALENZUELA MD Unavailable Unavailable ANTECOL, Nate VALENZUELA MD Unavailable Unavailable ANTECOL, Nate VALENZUELA MD Unavailable Unavailable ANTECOL, Nate VALENZUELA MD Unavailable Unavailable ANTECOL, Nate VALENZUELA MD Unavailable Unavailable ANTECOL, Nate VALENZUELA MD Unavailable Unavailable ANTECOL, Nate VALENZUELA MD Unavailable Unavailable Re-disclosure Warning The records that you are about to access may contain information from federally-assisted alcohol or drug abuse programs. If such information is present, then the following federally mandated warning applies: This information has been disclosed to you from records protected by federal confidentiality rules (42 CFR part 2). The federal rules prohibit you from making any further disclosure of this information unless further disclosure is expressly permitted by the written consent of the person to whom it pertains or as otherwise permitted by 42 CFR part 2. A general authorization for the release of medical or other information is NOT sufficient for this purpose. The Federal rules restrict any use of the information to criminally investigate or prosecute any alcohol or drug abuse patient.The records that you are about to access may contain highly sensitive health information, the redisclosure of which is protected by Article 27-F of the [facility] Public Health law. If you continue you may have access to information: Regarding HIV / AIDS; Provided by facilities licensed or operated by the [facility] Office of Mental Health; or Provided by the [facility] Office for People With Developmental Disabilities. If such information is present, then the following [facility] mandated warning applies: This information has been disclosed to you from confidential records which are protected by state law. State law prohibits you from making any further disclosure of this information without the specific written consent of the person to whom it pertains, or as otherwise permitted by law. Any unauthorized further disclosure in violation of state law may result in a fine or skilled nursing sentence or both. A general authorization for the release of medical or other information is NOT sufficient authorization for further disc losure. Family History Family Member Name Family Member Gender Family Member Status Date o f Status Description Data Source(s) Unknown Unknown Problem MEDENT ([facility]) Encounters Encounter Providers Location Date Indications Data Source(s ) Outpatient Attender: NICOLAS PEREIRA MD Main Office 05/30/2021 11:00:00 AM EDT MEDENT ([facility]) Outpatient [address] [facility] [address] [address] 05/18/2021 12:00:00 AM EDT eCW1 ([facility]) Unknown [address] [facility] [place] [address] 03/09/2021 12:00:00 AM EDT eCW1 ([facility]) Outpatient [address] [facility] [place] [address] 03/08/2021 12:00:00 AM EDT eCW1 ([facility]) Outpatient Attender: NICOLAS PEREIRA MD Main Office 02/20/2021 09:00:00 AM EDT MEDENT ([facility]) [place] [address] [facility] [address] 02/16/2021 12:00:00 AM EDT eCW1 ([facility]) [place] [address] [facility] [address] 02/16/2021 12:00:00 AM EDT eCW1 ([facility]) [place] [address] [facility] [address] 02/16/2021 12:00:00 AM EDT eCW1 ([facility]) [place] [address] [facility] [address] 02/02/2021 12:00:00 AM EDT eCW1 ([facility]) [place] [address] [facility] [address] 01/26/2021 12:00:00 AM EDT eCW1 ([facility]) [place] [address] [facility] [address] 01/25/2021 12:00:00 AM EDT eCW1 ([facility]) [place] [address] [facility] [address] 01/18/2021 12:00:00 AM EDT eCW1 ([facility]) [place] [address] [facility] [address] 01/18/2021 12:00:00 AM EDT eCW1 ([facility]) Medications Medication Brand Name Start Date Product Form Dose Route Admi nistrative Instructions Pharmacy Instructions Status Indications Reaction Description Data Source(s) 100 mg 03/14/2021 12:00:00 AM EDT capsule 90 TAKE ONE CAPSULE BY MOUTH THREE TIMES A DAY TAKE ONE CAPSULE BY MOUTH THREE TIMES A DAY SOLD: 04/28/2021 [facility] 100 mg 03/14/2021 12:00:00 AM EDT capsule 90 TAKE ONE CAPSULE BY MOUTH THREE TIMES A DAY TAKE ONE CAPSULE BY MOUTH THREE TIMES A DAY SOLD: 06/19/2021 [facility] 100 mg 03/14/2021 12:00:00 AM EDT capsule 90 TAKE ONE CAPSULE BY MOUTH THREE TIMES A DAY TAKE ONE CAPSULE BY MOUTH THREE TIMES A DAY SOLD: 03/20/2021 [facility] Loratadine 10 MG Oral Tablet Loratadine 02/19/2021 12:00:00 AM EDT ORAL active MEDENT ([facility]) Escitalopram 10 MG Oral Tablet Escitalopram Oxalate 02/19/2021 1 2:00:00 AM EDT ORAL active MEDENT ( [facility]) gabapentin 100 MG Oral Capsule Gabapentin 02/19/2021 12:00:00 AM EDT ORAL active MEDENT ([facility]) Ergocalciferol 35986 UNT Oral Capsule Vitamin D (Ergocalcife rol) 02/19/2021 12:00:00 AM EDT ORAL active M EDENT ([facility]) Calcium Carbonate 600 MG / Cholecalciferol 400 UNT Oral Tabl et Calcium 600+D 02/19/2021 12:00:00 AM EDT ORAL active MEDENT ([facility]) 1,250 mcg (50,000 unit) 02/18/2021 12:00:00 AM EDT capsule 4 TAKE ONE CAPSULE BY MOUTH ONCE WEEKLY WITH A MEAL TAKE ONE CAPSULE BY MOUTH ONCE WEEKLY WITH A MEAL SOLD: 06/19/2021 [facility] 1,250 mcg (50,000 unit) 02/18/2021 12:00:00 AM EDT capsule 4 TAKE ONE CAPSULE BY MOUTH ONCE WEEKLY WITH A MEAL TAKE ONE CAPSULE BY MOUTH ONCE WEEKLY WITH A MEAL SOLD: 02/18/2021 [facility] 100 mg 02/17/2021 12:00:00 AM EDT capsule 60 TAKE 1 CAPSULE BY MOUTH AT BEDTIME FOR 3 DAYS, THEN INCREASE TO TWO TIMES A DAY TAKE 1 CAPSULE BY MOUTH AT BEDTIME FOR 3 DAYS, THEN INCREASE TO TWO TIMES A DAY SOLD: 02/18/2021 [facility] Escitalopram 10 MG Oral Tablet ESCITALOPRAM OXALATE 02/17/2021 1 2:00:00 AM EDT tablet 30 TAKE ONE TABLET BY MOUTH EVERY D AY TAKE ONE TABLET BY MOUTH EVERY DAY SOLD: 04/28/2021 [facility] Escitalopram 10 MG Oral Tablet ESCITALOPRAM OXALATE 02/17/2021 1 2:00:00 AM EDT tablet 30 TAKE ONE TABLET BY MOUTH EVERY D AY TAKE ONE TABLET BY MOUTH EVERY DAY SOLD: 03/20/2021 [facility] Escitalopram 10 MG Oral Tablet ESCITALOPRAM OXALATE 02/17/2021 1 2:00:00 AM EDT tablet 30 TAKE ONE TABLET BY MOUTH EVERY D AY TAKE ONE TABLET BY MOUTH EVERY DAY SOLD: 02/18/2021 [facility] Escitalopram 10 MG Oral Tablet ESCITALOPRAM OXALATE 02/17/2021 1 2:00:00 AM EDT tablet 30 TAKE ONE TABLET BY MOUTH EVERY D AY TAKE ONE TABLET BY MOUTH EVERY DAY SOLD: 06/19/2021 [facility] gabapentin 100 MG Oral Capsule Gabapentin 100 MG Gabapentin 100 MG 02/16/2021 12:00:00 AM EDT 1.0 {capsule} active G abapentin 100 MG eCW1 ([facility]) gabapentin 100 MG Oral Capsule Gabapentin 100 MG Gabapentin 100 MG 02/16/2021 12:00:00 AM EDT 1.0 {capsule} active G abapentin 100 MG eCW1 ([facility]) gabapentin 100 MG Oral Capsule Gabapentin 100 MG Gabapentin 100 MG 02/16/2021 12:00:00 AM EDT 1.0 {capsule} active G abapentin 100 MG eCW1 ([facility]) 1,250 mcg (50,000 unit) 01/27/2021 12:00:00 AM EDT capsule 4 TAKE ONE CAPSULE BY MOUTH ONCE WEEKLY WITH A MEAL TAKE ONE CAPSULE BY MOUTH ONCE WEEKLY WITH A MEAL SOLD: 04/28/2021 [facility] 1,250 mcg (50,000 unit) 01/27/2021 12:00:00 AM EDT capsule 4 TAKE ONE CAPSULE BY MOUTH ONCE WEEKLY WITH A MEAL TAKE ONE CAPSULE BY MOUTH ONCE WEEKLY WITH A MEAL SOLD: 03/20/2021 [facility] 1,250 mcg (50,000 unit) 01/27/2021 12:00:00 AM EDT capsule 4 TAKE ONE CAPSULE BY MOUTH ONCE WEEKLY WITH A MEAL TAKE ONE CAPSULE BY MOUTH ONCE WEEKLY WITH A MEAL SOLD: 01/28/2021 [facility] Calcium Carbonate 1500 MG / Cholecalcife rol 200 UNT Oral Tablet 600 mg(1,500mg) -200 unit CALCIUM CARBONATE/VITAMIN D3 01/26/2021 12:00:00 AM EDT tablet 30 TAKE 1 TABLET BY MOUTH ONCE A DAY WITH A MEAL TAKE 1 TABLET BY MOUTH ONCE A DAY WITH A MEAL SOLD: 01/27/2021 [facility] Insurance Providers Payer name Policy type / Coverage type Policy ID Covered green party ID Covered green party's relationship to garcia Policy Garcia Plan Information Medicaid Dental S [id number] S [id number] D Managed Care [facility] P [id number] S [id number] [facility] [id number] SP [id number] ANSI-Not a Secondary Insurance [id number] ANSI-Not a Secondary Insurance [id number] [facility] O [id number] S [id number] [facility] [id number] SP [id number] COUNT INCLUDES THE [facility] COMMUN[facility] [id number] SP [id number] COUNT INCLUDES THE [facility] COMMUNITY PLAN [facility] [id number] SP [id number] [facility] Commercial [id number] Self [id number] [facility] [id number] SP [id number] [facility] [id number] SP [id number] [facility] [id number] SP [id number] [facility] O [id number] O [id number] [facility] Commercial [id number] Self [id number] [facility] [id number] SP [id number] ANSI-Not a Secondary Insurance [id number] [facility] O [id number] S [id number] ANSI-Not a Secondary Insurance [id number] Problems, Conditions, and Diagnoses Code Display Name Description Problem Type Effective Dates Data Source(s) M25.50 [id number] Arthralgia of multiple joints Problem 03/08/2021 12:00:00 AM EDT eCW1 ([facility]) I83.811 [id number] Varicose veins of right lower extremity with pain Problem 03/08/2021 12:00:00 AM EDT eCW1 ([facility]) R00.2 [id number] Palpitations Problem 03/08/2021 12:00:00 AM EDT eCW1 ([facility]) Z71.3 Dietary management surveillance Dietary management caryl veillance Problem 02/20/2021 12:00:00 AM EDT MEDENT ([facility]) E66.3 Overweight Overweight Problem 02/20/2021 12:00:00 AM ED T MEDENT ([facility]) I45.19 Right bundle branch block Right bundle branch block Pr oblem 02/20/2021 12:00:00 AM EDT MEDENT ([facility]) Z82.41 Family history of sudden Family history of sudde n Problem 02/20/2021 12:00:00 AM EDT MEDENT ([facility]) R55 Syncope and collapse Syncope and collapse Problem 02/20/2021 12:00:00 AM EDT MEDENT ([facility]) R00.2 Palpitations Palpitations Problem 02/20/2021 12:00:00 A M EDT MEDENT ([facility]) R20.2 [id number] Paresthesias Problem 02/16/2021 12:00:00 AM EDT eCW1 ([facility]) Surgeries/Procedures Procedure Description Date Indications Data Source(s) OFFICE OUTPATIENT VISIT 10 MINUTES 05/30/2021 12:00:00 AM EDT MEDENT ([facility]) ECHO TTHRC R-T 2D W/WOM-MODE COMPL SPEC&COLR DOP 05/07 12:00:00 AM EDT MEDENT ([facility]) XTRNL PT ACTIVATED ECG RECORD MONITOR 30 DAYS 03/22/20 12:00:00 AM EDT MEDENT ([facility]) XTRNL PT ACTIVTD ECG DWNLD 30 DAYS PHYS R&I 03/22/2021 12:00:00 AM EDT MEDENT ([facility]) ECG ROUTINE ECG W/LEAST 12 LDS W/I&R 02/20/2021 12:00: 00 AM EDT MEDENT ([facility]) OFFICE OUTPATIENT NEW 45 MINUTES 02/20/2021 12:00:00 A M EDT MEDENT ([facility]) Results ID Date Data Source [id number] 02/15/2021 09:10:00 AM EDT MEDENT ([facility]) Name Value Range Interpretation Code Description Data Nora rce(s) Supporting Document(s) Platelets 321 150-450 MEDENT ([facility]) Red Blood Count 4.01 4.00-5.40 MEDENT ([facility]) White Blood Count 8.8 4.0-10.0 MEDENT ([facility]) Hematocrit 36.8 MEDENT ([facility]) Hemoglobin 12.4 MEDENT ([facility]) ID Date Data Source [id number] 02/15/2021 09:10:00 AM EDT MEDENT ([facility]) Name Value Range Interpretation Code Description Data Nora rce(s) Supporting Document(s) Troponin Laboratory test result MEDENT ([facility]) ID Date Data Source [id number] 02/15/2021 09:10:00 AM EDT [facility] ([facility]) Name Value Range Interpretation Code Description Data Nora rce(s) Supporting Document(s) Creatine kinase [Enzymatic activity/volume] in Serum or Plasma 391 MEDENT ([facility]) CPK-MB 2.3 MEDENT ([facility]) ID Date Data Source [id number] 02/15/2021 09:10:00 AM EDT MEDENT ([facility]) Name Value Range Interpretation Code Description Data Nora rce(s) Supporting Document(s) Creatinine 0.79 0.55-1.30 MEDENT ([facility]) Glucose 90 70-100 [facility] Blood Urea Nitrogen 13 7-18 MEDENT ([facility]) Sodium 142 136-145 [facility] Potassium 3.6 3.5-5.1 MED[facility] Chloride 108 98-107 MED[facility] Calcium 9.2 8.2-9.6 MED[facility] ([facility] Carbon Dioxide 28 21-32 MEDENT ([facility]) Glomerular filtration rate/1.73 sq M.pre dicted [Volume Rate/Area] in Serum or Plasma by Creatinine-based formula (MDRD) Laboratory test result MEDENT ([facility]) ID Date Data Source [id number] 01/25/2021 11:43:00 AM EDT [facility]) Name Value Range Interpretation Code Description Data Nora rce(s) Supporting Document(s) Thyroid Stimulating Hormone 0.857 ME DENT ([facility]) Free T4 0.82 [facility] ID Date Data Source VITAMIN D [id number] 01/25/2021 12:00:00 AM EDT eCW1 ([facility]) Name Value Range Interpretation Code Description Data Nora rce(s) Supporting Document(s) 23.0 30.0-100.0 TOTAL 25(OH) VITAMIN D eC W1 ([facility]) ID Date Data Source FREE T4 & TSH PANEL 01/25/2021 12:00:00 AM EDT eCW1 ([facility]) Name Value Range Interpretation Code Description Data Nora rce(s) Supporting Document(s) 0.857 0.358-3.740 THYROID STIMULATING HORM ONE eCW1 ([facility]) 0.82 0.76-1.46 FREE T4 eCW1 ([facility]) ID Date Data Source [id number] 01/18/2021 11:44:00 AM EDT MEDENT ([facility]) Name Value Range Interpretation Code Description Data Nora rce(s) Supporting Document(s) Red Blood Count 4.42 4.00-5.40 MEDENT ([facility]) White Blood Count 10.7 4.0-10.0 MEDENT ([facility]) Hematocrit 41.5 MEDENT ([facility]) Hemoglobin 13.6 MEDENT ([facility]) Platelets 323 150-450 [facility] Procedure Social History Code Duration Value Status Description Data Source(s ) Smoking 05/30/2021 12:00:00 AM EDT Patient has never smoked co mpleted Patient has never smoked MEDENT ([facility]) Smoking 05/18/2021 12:00:00 AM EDT Former Smoker completed Former Smoker eCW1 ([facility]) Smoking 03/08/2021 12:00:00 AM EDT Former Smoker completed Former Smoker eCW1 ([facility]) Smoking 03/08/2021 12:00:00 AM EDT Former Smoker completed Former Smoker eCW1 ([facility]) Smoking 02/16/2021 12:00:00 AM EDT Former Smoker completed Former Smoker eCW1 ([facility]) Smoking 02/16/2021 12:00:00 AM EDT Former Smoker completed Former Smoker eCW1 ([facility]) Smoking 02/16/2021 12:00:00 AM EDT Former Smoker completed Former Smoker eCW1 ([facility]) Smoking 01/25/2021 12:00:00 AM EDT Former Smoker completed Former Smoker eCW1 ([facility]) Smoking 01/25/2021 12:00:00 AM EDT Former Smoker completed Former Smoker eCW1 ([facility]) Smoking 01/25/2021 12:00:00 AM EDT Former Smoker completed Former Smoker eCW1 ([facility]) Vital Signs ID Date Data Source UNK Name Value Range Interpretation Code Description Data Source(s) Body weight 187.00 [lb_av] 187.00 [lb_av] MEDEN T ([facility]) Body mass index (BMI) [Ratio] 30.2 kg/m2 30.2 k g/m2 MEDENT ([facility]) Heart rate 67 /min 67 /min MED[facility] ([facility]) Body height 66 [in_i] 66 [in_i] MEDENT ([facility]) 5'6" Systolic blood pressure--sitting 114 mm[Hg] 114 mm[Hg] MEDENT ([facility]) Omron large cuff, Ra Diastolic blood pressure--sitting 73 mm[Hg] 73 mm[Hg] MEDENT ([facility]) Omron large cuff, Ra Heart rate 70 /min 70 /min eCW1 ([facility]) Body weight 184 [lb_av] 184 [lb_av] eCW1 ([facility]) Body height 66 [in_i] 66 [in_i] eCW1 ([facility]) Body mass index (BMI) [Ratio] 29.70 kg/m2 29.70 kg/m2 eCW1 ([facility]) Respiratory rate 18 /min 18 /min eCW1 ([facility]) Body temperature 97.9 [degF] 97.9 [degF] eCW1 ( [facility]) Systolic blood pressure 120 mm[Hg] 120 mm[Hg] e CW1 ([facility]) Diastolic blood pressure 70 mm[Hg] 70 mm[Hg] eCW1 ([facility]) Body weight 179 [lb_av] 179 [lb_av] eCW1 ([facility]) Body height 66 [in_i] 66 [in_i] eCW1 ([facility]) Body mass index (BMI) [Ratio] 28.89 kg/m2 28.89 kg/m2 W1 ([facility]) Heart rate 87 /min 87 /min eCW1 ([facility]) Respiratory rate 20 /min 20 /min eCW1 ([facility]) Body temperature 97 [degF] 97 [degF] eCW1 ([facility]) Systolic blood pressure 120 mm[Hg] 120 mm[Hg] e CW1 ([facility]) Diastolic blood pressure 70 mm[Hg] 70 mm[Hg] eCW1 ([facility]) Systolic blood pressure--standing 109 mm[Hg] 10 9 mm[Hg] MEDENT ([facility]) Omron, adult cuff/Ra; HR: 82 bpm Diastolic blood pressure--sitting 67 mm[Hg] 67 mm[Hg] MEDENT ([facility]) Omron, adult cuff/Ra; HR: 71 bpm Systolic blood pressure--sitting 111 mm[Hg] 111 mm[Hg] MEDENT ([facility]) Omron, adult cuff/Ra; HR: 71 bpm Heart rate 71 /min 71 /min MEDENT ([facility]) Systolic blood pressure--supine 119 mm[Hg] 119 mm[Hg] MEDENT ([facility]) Omron, adult cuff/Ra; HR: 69 bpm Diastolic blood pressure--supine 65 mm[Hg] 65 mm[Hg] MEDENT ([facility] [facility]) Omron, adult cuff/Ra; HR: 69 bpm Body weight 183.00 [lb_av] 183.00 [lb_av] MEDEN T ([facility]) Body height 66 [in_i] 66 [in_i] MEDENT ([facility]) 5'6" Body mass index (BMI) [Ratio] 29.5 kg/m2 29.5 k g/m2 MEDENT ([facility]) Diastolic blood pressure--standing 70 mm[Hg] 7 0 mm[Hg] MEDENT ([facility]) Omron, adult cuff/Ra; HR: 82 bpm Body weight 182 [lb_av] 182 [lb_av] eCW1 ([facility]) Body height 66 [in_i] 66 [in_i] eCW1 ([facility]) Body mass index (BMI) [Ratio] 29.37 kg/m2 29.37 kg/m2 W1 ([facility]) Heart rate 83 /min 83 /min eCW1 ([facility]) Respiratory rate 18 /min 18 /min eCW1 ([facility]) Body temperature 97.3 [degF] 97.3 [degF] eCW1 ( [facility]) Systolic blood pressure 128 mm[Hg] 128 mm[Hg] e CW1 ([facility]) Diastolic blood pressure 86 mm[Hg] 86 mm[Hg] eCW1 ([facility]) Body weight 184 [lb_av] 184 [lb_av] eCW1 ([facility]) Body height 66 [in_i] 66 [in_i] eCW1 ([facility]) Body mass index (BMI) [Ratio] 29.70 kg/m2 29.70 kg/m2 eCW1 ([facility]) Heart rate 80 /min 80 /min eCW1 ([facility]) Respiratory rate 18 /min 18 /min eCW1 ([facility]) Body temperature 97 [degF] 97 [degF] eCW1 ([facility]) Systolic blood pressure 120 mm[Hg] 120 mm[Hg] e CW1 ([facility]) Diastolic blood pressure 70 mm[Hg] 70 mm[Hg] eCW1 ([facility]) Patient Treatment Plan of Care Planned Activity Planned Date Details Description Data Source (s) gabapentin 100 MG Oral Capsule 02/16/2021 12:00:00 AM EDT eCW1 ([facility]) gabapentin 100 MG Oral Capsule 02/16/2021 12:00:00 AM EDT eCW1 ([facility]) gabapentin 100 MG Oral Capsule 02/16/2021 12:00:00 AM EDT eCW1 ([facility])
--- OUTSIDE RECORDS SUMMARY | 2021-06-28 13:10 | CCD ---
Author Author [facility] Organization [facility] Address Unknown Phone Unavailable Care Team Providers Care Photo Studio Assistant Name Role Phone Nabila Sanchez Unavailable PROBLEMS Type Condition ICD9-CM Code [id number] Code Onset Dates Condition S tatus W/U Status Risk SNOMED Code Notes Problem Non-seasonal allergic rhinitis, unspecified trigger J30.89 Active confirmed 97133321 Problem Fatigue, unspecified type R53.83 Active confirmed 79297242 Problem Moderate episode of recurrent major depressive disorder F33.1 Active confirmed 932775928 Problem Anxiety disorder, unspecified type F41.9 Activ e confirmed 322378801 Problem Adjustment disorder with mixed anxiety and depressed mood F43.23 Active confirmed 06649468 Problem Nocturnal oxygen desaturation G47.34 Active confirm ed 672695603 Problem Palpitations R00.2 Active confirmed 2178909 2 Problem Vitamin D deficiency E55.9 Active confirmed 24444393 Problem Paresthesias R20.2 Active confirmed 9201072 4 Problem Moderate persistent asthma without complication J4 5.40 Active confirmed 832226666 Problem Stress incontinence of urine N39.3 Active confirme d 40529583 Problem Other migraine without status migrainosus, not intractable G43.809 Active confirmed 16025157 Problem Varicose veins of right lower extremity with pain I83.811 Active confirmed [id number] Problem Arthralgia of multiple joints M25.50 Active confirm ed 34259795 ALLERGIES Allergen (clinical drug ingredient) Drug/Non Drug Allergy do cumented on EMR Reaction Allergy Type Onset Date Status fluticasone Flonase Allergy Relief([facility] Code:[address]-55) h eadaches Drug Allergy Active Sulfa (for allergy use only) Angioedema Drug Allergy Active Penicillin (For Allergies Use Only) Angioedema Drug Allerg y Active ENCOUNTERS from 1974 to 2021-05-23 Encounter Location Date Provider Diagnosis [facility] Ciera Perez[address] [facility] [phone] [place] [address] May, Nabila Sanchez Paresthesias R20.2 ; Arthral joslyn of multiple joints M25.50 ; Vitamin D deficiency E55.9 ; Anxiety disorder, unspecified type F41.9 and Non-seasonal allergic rhinitis, unspecified trigger J30.89 IMMUNIZATIONS No Information SOCIAL HISTORY Tobacco Use: Social History Observation Description Date Details (start date - stop date) Former Smoker Sex Assigned At : Social History Observation Description Sex Assigned At Unknown Education: Question Answer Notes Level of Education: Finished High School Audit Question Answer Notes Total Score: 0 Interpretation: Alcohol Education Language: Question Answer Notes Languages spoken: Sinhala Sikh: Question Answer Notes Sikh 03 Restorationism Sexual Hx: Question Answer Notes Had sex in the last 12 months (vaginal, oral, or anal)? Yes Have you ever had an STD? No Prevention Strategies discussed: Condoms with Men only Use protection? No Drug and Alcohol Question Answer Notes Total Score: 0 Interpretation: No problems reported Alcohol Screening: Question Answer Notes Did you have a drink containing alcohol in the past year? No Points 0 Interpretation Negative BMI Care Goal Follow-Up Question Answer Notes Above Normal BMI Follow-Up Giving encouragement to exercise Tobacco Use: Question Answer Notes Are you a: former smoker How long has it been since you last smoked? > 10 years REASON FOR REFERRAL No Information VITAL SIGNS Weight 184 lbs May, Height 66 in May, BMI 29.70 kg/m2 May, Heart Rate 70 /min May, Respiratory Rate 18 /min May, Temperature 97.9 degrees Fahrenheit May, Oximetry 100 May, Blood pressure systolic 120 mm Hg May, Blood pressure diastolic 70 mm Hg May, MEDICATIONS Medication SIG (Take, Route, Frequency, Duration) Notes Start Da te End Date Status Drisdol 01368 UNIT 1 capsule with a meal Orally once a week for 30 da y(s) Active Fluconazole 150 MG 1 tablet Orally Daily for 1 dose(s) Oct, Not-Taking Aleve 220 MG 1 tablet with food or milk as needed Orally every 12 hrs /prn Active Ventolin HFA 108 (90 Base) MCG/ACT 2 puffs as needed I nhalation every 6 hrs for 30 day(s) Active Arnuity Ellipta 100 MCG/ACT 2 puffs Inhalation Once a day for 30 day( s) Not-Taking Calcium 600-200 MG-UNIT 1 tablet with meals Orally Once a day for 3 0 day(s) Active Gabapentin 100 MG 1 capsule Orally three times daily for 30 day(s) Active Estradiol 1 mg 1 tablet Orally Once a day Not-Taking Loratadine 10 MG 1 tablet Orally Once a day as needed Active Physical Therapy evaluate and treat as directed for ur inary incontinence s/p hysterectomy 1-3X/week for 1 month never started Not-Taking Escitalopram Oxalate 10 MG 1 tablet Orally Once a day for 30 day(s) Active Debrox 6.5 % 5 drops into left ear Otic Twice a day for 4 da y(s) January, Not-Taking PROCEDURES No Information RESULTS No Results REASON FOR VISIT r/s 2 mo FU from February MEDICAL (GENERAL) HISTORY Type Description Date Medical History Moderate persistent asthma without compl ication Medical History Non-seasonal allergic rhinitis, unspecif ied trigger Medical History cervical cancer - age 13 Medical History Vitamin D deficiency Medical History Anxiety disorder, unspecified type Medical History Adjustment disorder with mixed anxiety a nd depressed mood Surgical History Kidney surgery x2 age 1, age 3 Surgical History Appendix age 13 Surgical History Right knee repair - [facility]2007 Surgical History vein stripping right leg - [facility]2007 Surgical History Lap Hysterectomy with bilate ral salpingectomy for endometriosis w/ polyps/fibroids- [facility] 02/2017 Hospitalization History Child 1995 Hospitalization History Child 1997 Goals Section No Information Health Concerns No Information MEDICAL EQUIPMENT No Information MENTAL STATUS No Information FUNCTIONAL STATUS No Information ASSESSMENTS Encounter Date Diagnosis Assessment Notes Treatment Notes Treatm ent Clinical Notes May, Paresthesias (ICD-10 - R20.2) Improved on gabapentin and she will follow up wiith neurology for further testing- referral pending. Patient agrees with plan May, Arthralgia of multiple joints (ICD-10 - M25.50) CHECK LABS as previously ordered May, Vitamin D deficiency (ICD-10 - E55.9) due for labs May, Anxiety disorder, unspecified type (ICD-10 - F41 .9) improved on current med May, Non-seasonal allergic rhinit is, unspecified trigger (ICD-10 - J30.89) stopped flonase due to side effects, advised saline nasal spray and loratadine as needed May, Other advised support stockings PLAN OF TREATMENT Medication Medication Name Sig Start Date Stop Date Escitalopram Oxalate 10 MG 1 tablet Orally Once a day for 30 day (s) Drisdol 97885 UNIT 1 capsule with a meal Orally once a week for 30 day(s) Gabapentin 100 MG 1 capsule Orally three times daily for 30 day( s) Calcium 600-200 MG-UNIT 1 tablet with meals Orally Once a day fo r 30 day(s) Loratadine 10 MG 1 tablet Orally Once a day as needed Treatment Notes Assessment Notes Clinical Notes Paresthesias Improved on gabapentin and s he will follow up [facility] neurology for further testing- referral pending. Patient agrees with plan Arthralgia of multiple joints CHECK LABS as previously order ed Vitamin D deficiency due for labs Anxiety disorder, unspecified type improved on current med Non-seasonal allergic rhinitis, unspecified trigger st opped flonase due to side effects, advised saline nasal spray and loratadine as needed Treatment Notes Test Name Order Date VITAMIN D 25-HYDROXY 2021-05-18 Next Appt Details 3 Months - transfer Reason:follow-up Provider Name:Elisabeth Reilly, 2020-09 08:45:00 AM, [address] [facility], , [place], [address], Follow Up:3 Months - transferfollow-up Insurance Providers Payer Name Payer Address Payer Phone Insured Name Patient Relati onship to Insured Coverage Start Date Coverage End Date [facility] [address] [place] [id number] ALLISON ZAMORA,ELISABETH HARRELL self
--- OUTSIDE RECORDS SUMMARY | 2021-06-28 13:10 | CCD | Continuity of Care Document ---
Author Elisabeth Leary Organization Unknown Address [address], [place] [address] Phone [phone] Care Team Providers Care Law Firm Receptionist Name Role Phone Nabila Sanchez HIRAM AUTM [phone] Vera Cunha MD AUTM [phone] Problems Active Problems Provider Date Palpitations Slade Mckeon MD Onset: 02/20/2021 Syncope and collapse Slade Mckeon MD Onset: 02/20/2021 Family history of sudden Slade Mckeon MD Onset: 0 02/20/2021 Right bundle branch block Slade Mckeon MD Onset: 2020 Overweight Slade Mckeon MD Onset: 02/20/2021 Dietary management surveillance Slade Mckeon MD Onset: 02/20/2021 Social History Type Date Description Comments Sex Unknown ETOH Use Rarely consumes alcohol Tobacco Use Start: Unknown Patient has never smoked Smoking Status Reviewed: 02/20/21 Patient has never smoked Exercise Type/Frequency Fully active: Ab le to carry on all performance without restriction Exercise Limitations Dizziness Allergies, Adverse Reactions, Alerts Active Allergies Criticality Reaction | Severity Comments Date Sulfa Unable to assess criticality 02/20/2021 Penicillin V Unable to assess criticality 02/20/2021 Medications Active Medications SIG Qnty Indications Ordering Provide r Date Calcium 600+D [id number] Table ts 1 by mouth once a day Unknown 02/19/2021 Vitamin D (Ergocalciferol) 1.25mg (05104 Ut) Capsules 1 by mouth every weekly Unknown 03/2021 Gabapentin 100mg Capsules 1 by mouth two times a day Unknown 02/19/2021 Escitalopram Oxalate 10mg Tablets 1 by mouth every day Unknown 02/19/2021 Loratadine 10mg Tablets 1 by mouth every day Unknown 02/19/2021 Immunizations Description No Information Available Vital Signs Date Vital Result Comment 02/20/2021 9:07am Weight 183.00 lb Height 66 inches 5'6" BMI (Body Mass Index) 29.5 kg/m2 Heart Rate 71 /min BP Systolic Sitting 111 mmHg Omron, adult cuff/Ra ; HR: 71 bpm BP Diastolic Sitting 67 mmHg Omron, adult cuff/R a; HR: 71 bpm BP Systolic Lying Down 119 mmHg Omron, adult cuff /Ra; HR: 69 bpm BP Diastolic Lying Down 65 mmHg Omron, adult cuf f/Ra; HR: 69 bpm BP Systolic Standing 109 mmHg Omron, adult cuff/R a; HR: 82 bpm BP Diastolic Standing 70 mmHg Omron, adult cuff/ Ra; HR: 82 bpm Results Test Acquired Date Facility Test Result H/L Range Note Basic Metabolic Panel 02/15/2021 [facility] - not interfac ed (315)- - Glucose 90 70-100 Blood Urea Nitrogen 13 7-18 Creatinine 0.79 0.55-1.30 Sodium 142 136-145 Potassium 3.6 3.5-5.1 Chloride 108 High 98-107 Carbon Dioxide 28 21-32 Calcium 9.2 8.2-9.6 GFR (Calculated) >60.0 >32 CPK & CPK MB 02/15/2021 [facility] - not interfaced (315)- - CPK 391 CPK-MB 2.3 Laboratory test finding 02/15/2021 [facility] - not interf aced (315)- - Troponin <0.02 CBC without Differential 02/15/2021 [facility] - not inter faced (315)- - White Blood Count 8.8 4.0-10.0 Red Blood Count 4.01 4.00-5.40 Platelets 321 150-450 Hemoglobin 12.4 Hematocrit 36.8 Laboratory test finding 01/25/2021 [facility] - not interf aced (315)- - Thyroid Stimulating Hormone 0.857 Free T4 0.82 CBC without Differential 01/18/2021 [facility] - not inter faced (315)- - White Blood Count 10.7 High 4.0-10.0 Red Blood Count 4.42 4.00-5.40 Platelets 323 150-450 Hemoglobin 13.6 Hematocrit 41.5 Procedures Date Code Description Status 03/22/2021 31197 Multi Event Recorder Interpretat ion Completed 03/22/2021 77747 Multi Event Recorder Hookup Comp leted 02/20/2021 75233 Office/Outpatient New Moderate M DM 45-59 Minutes Completed 02/20/2021 39120 ECG 12-Lead Completed Medical Devices Description No Information Available Encounters Type Date Location Provider Dx Diagnosis Office Visit 02/20/2021 9:00a Main Office Slade Mckeon MD R00.2 Palpitations R55 Syncope and collapse I45.19 Other right bundle-branch bl ock Z82.41 Family history of sudden car diac E66.3 Overweight Z71.3 Dietary counseling and surve illance Assessments Date Code Description Provider 03/22/2021 R00.2 Palpitations Holter/Event/Tel emetry 02/20/2021 R00.2 Palpitations Slade Mckeon MD 02/20/2021 R55 Syncope and collapse Slade dickerson MD 02/20/2021 I45.19 Other right bundle-branch block Slade Mckeon MD 02/20/2021 Z82.41 Family history of sudden cardiac Slade Mckeon MD 02/20/2021 E66.3 Overweight Salde Mckeon MD 02/20/2021 Z71.3 Dietary counseling and surveilla nce Slade Mckeon MD Plan of Treatment Future Appointment(s):* 05/30/2021 11:00 am - Slade Mckeon MD at Main Office 02/20/2021 - Slade Mckeon MD* R00.2 Palpitations* Recommendations:* Event monitor x 30 days. * R55 Syncope and collapse* New Xrays:* US Echocardiogram Transthoracic W Doppler And Color Flow, Scheduled: 05/07/21 * Recommendations:* Event Monitor x 30 days was ordered for further evaluation. Echocardiogram-Doppler was ordered for further evaluation. If the patient's workup with event monitor and echocardiogram Doppler are negative, she would be considered for a subcutaneous cardiac rhythm monitor. * I45.19 Other right bundle-branch block * Z82.41 Family history of sudden cardiac * Recommendations:* Workup of palpitations and syncope as addressed above. * E66.3 Overweight* Recommendations:* Low-fat, whole-food, plant-based nutrition was encouraged. Walking or equivalent aerobic activity for 40-60 minutes every day. * Z71.3 Dietary counseling and surveillance * All * Follow up:* Clinic visit in [address] Mckeon. Functional Status Functional Condition Comment Date Status Independent with all ADL's Activ e Mental Status Description No Information Available Referrals Description No Information Available
--- OUTSIDE RECORDS SUMMARY | 2021-06-28 13:10 | CCD | Continuity of Care Document ---
Author Elisabeth Leary Organization Unknown Address [address] [facility], [place] [address] Phone [phone] Care Team Providers Care Industrial Service Technician Name Role Phone Nabila Sanchez HIRAM AUTM [phone] Vera Cunha MD AUTM [phone] Problems Active Problems Provider Date Palpitations Slade [...] Indications Ordering Provide r Date Calcium 600+D [id number]-Rano Table ts 1 by mouth once a day Unknown 02/19/2021 Vitamin D (Ergocalciferol) 1.25mg (40325 Ut) Capsules 1 by mouth every weekly [...] H/L Range Note Basic Metabolic Panel 02/15/2021 [facility] - not interfac ed (315)- - Glucose 90 70-100 Blood Urea Nitrogen 13 7-18 Creatinine 0.79 0.55-1.30 Sodium 142 136-145 Potassium 3.6 3.5-5.1 Chloride 108 High 98-107 Carbon Dioxide 28 21-32 Calcium 9.2 8.2-9.6 GFR (Calculated) >60.0 >32 CPK & CPK MB 02/15/2021 [facility] - not interfaced (315)- - CPK 391 CPK-MB 2.3 Laboratory test finding 02/15/2021 [facility] - not interf aced (315)- - Troponin <0.02 CBC without Differential 02/15/2021 [facility] - not inter faced (315)- - White Blood Count 8.8 4.0-10.0 Red Blood Count 4.01 4.00-5.40 Platelets 321 150-450 Hemoglobin 12.4 Hematocrit 36.8 Laboratory test finding 01/25/2021 [facility] - not interf aced (315)- - Thyroid Stimulating Hormone 0.857 Free T4 0.82 CBC without Differential 01/18/2021 [facility] - not inter faced (315)- - White Blood Count 10.7 High 4.0-10.0 Red Blood Count 4.42 4.00-5.40 Platelets 323 150-450 Hemoglobin 13.6 Hematocrit 41.5 Procedures Date Code Description Status 05/07/2021 66711 Echocardiogram 2-D Doppler Color Completed 03/22/2021 45744 Multi Event Recorder Interpretat ion Completed 03/22/2021 12857 Multi Event Recorder Hookup Comp leted 02/20/2021 83700 Office/Outpatient New Moderate M DM 45-59 Minutes Completed 02/20/2021 85739 ECG 12-Lead Completed Medical Devices Description No Information Available Encounters Type Date Location Provider Dx Diagnosis Office Visit 02/20/2021 9:00a Main Office Slade Mckeon MD R00.2 Palpitations R55 Syncope and collapse I45.19 Other right bundle-branch bl ock Z82.41 Family history of sudden car diac E66.3 Overweight Z71.3 Dietary counseling and surve illance Assessments Date Code Description Provider 05/07/2021 R55 Syncope and collapse ECHO 03/22/2021 R00.2 Palpitations Holter/Event/Tel emetry 02/20/2021 R00.2 Palpitations Slade Mckeon MD 02/20/2021 R55 Syncope and collapse Slade dickerson MD 02/20/2021 I45.19 Other right bundle-branch block Slade Mckeon MD 02/20/2021 Z82.41 Family history of sudden cardiac Slade Mckeon MD 02/20/2021 E66.3 Overweight Slade Mckeon MD 02/20/2021 Z71.3 Dietary counseling and [...]
--- OUTSIDE RECORDS SUMMARY | 2021-06-28 13:10 | CCD | Continuity of Care Document ---
Author Author Elisabeth MCKEON MD Organization Unknown Address [address] [facility], [place] [address] Phone [phone] Care Team Providers Care Restaurant Mgr Name Role Phone Nabila Sanchez HIRAM AUTM [phone] Vera Cunha MD AUTM [phone] Problems Active Problems Provider Date Palpitations Slade Mckeon MD Onset: 02/20/2021 Syncope and collapse Slade Mckeon MD Onset: 02/20/2021 Family history of sudden Slade Mckeon MD Onset: 0 02/20/2021 Right bundle branch block Salde Mckeon MD Onset: 2020 Overweight Slade Mckeon MD Onset: 02/20/2021 Dietary management surveillance Slade Mckeon MD Onset: 02/20/2021 Social History Type Date Description Comments Sex Unknown ETOH Use Rarely consumes alcohol Tobacco Use Start: Unknown Patient has never smoked Smoking Status Reviewed: 05/30/21 Patient has never smoked Exercise Type/Frequency Fully active: Ab le to carry on all performance without restriction Exercise Limitations Dizziness Allergies, Adverse Reactions, Alerts Active Allergies Criticality Reaction | Severity Comments Date Sulfa Unable to assess criticality 02/20/2021 Penicillin V Unable to assess criticality 02/20/2021 Medications Active Medications SIG Qnty Indications Ordering Provide r Date Calcium 600+D [id number]-Mjye Table ts 1 by mouth once a day Unknown 02/19/2021 Vitamin D (Ergocalciferol) 1.25mg (75427 Ut) Capsules 1 by mouth every weekly Unknown 0603/2021 Gabapentin 100mg Capsules 1 by mouth two times a day Unknown 02/19/2021 Escitalopram Oxalate 10mg Tablets 1 by mouth every day Unknown 02/19/2021 Loratadine 10mg Tablets 1 by mouth every day Unknown 02/19/2021 Immunizations Description No Information Available Vital Signs Date Vital Result Comment 05/30/2021 10:50am Weight 187.00 lb Height 66 inches 5'6" BMI (Body Mass Index) 30.2 kg/m2 Heart Rate 67 /min BP Systolic Sitting 114 mmHg Omron large cuff, Ra BP Diastolic Sitting 73 mmHg Omron large cuff, R a 02/20/2021 9:07am Weight 183.00 lb Height 66 [...] H/L Range Note Basic Metabolic Panel 02/15/2021 [facility] - not interfac ed (315)- - Glucose 90 70-100 Blood Urea Nitrogen 13 7-18 Creatinine 0.79 0.55-1.30 Sodium 142 136-145 Potassium 3.6 3.5-5.1 Chloride 108 High 98-107 Carbon Dioxide 28 21-32 Calcium 9.2 8.2-9.6 GFR (Calculated) >60.0 >32 CPK & CPK MB 02/15/2021 [facility] - not interfaced (315)- - CPK 391 CPK-MB 2.3 Laboratory test finding 02/15/2021 [facility] - not interf aced (315)- - Troponin <0.02 CBC without Differential 02/15/2021 [facility] - not inter faced (315)- - White Blood Count 8.8 4.0-10.0 Red Blood Count 4.01 4.00-5.40 Platelets 321 150-450 Hemoglobin 12.4 Hematocrit 36.8 Laboratory test finding 01/25/2021 [facility] - not interf aced (315)- - Thyroid Stimulating Hormone 0.857 Free T4 0.82 CBC without Differential 01/18/2021 [facility] - not inter faced (315)- - White Blood Count 10.7 High 4.0-10.0 Red Blood Count 4.42 4.00-5.40 Platelets 323 150-450 Hemoglobin 13.6 Hematocrit 41.5 Procedures Date Code Description Status 05/30/2021 43724 Office/Outpatient Established SF MDM 10-19 Min Completed 05/07/2021 94073 Echocardiogram 2-D Doppler Color Completed 03/22/2021 25888 Multi Event Recorder Interpretat ion Completed 03/22/2021 27382 Multi Event Recorder Hookup Comp leted 02/20/2021 60391 Office/Outpatient New Moderate M DM 45-59 Minutes Completed 02/20/2021 02852 ECG 12-Lead Completed Medical Devices Description No Information Available Encounters Type Date Location Provider Dx Diagnosis Office Visit 05/30/2021 11:00a Main Office Slade Mckeon MD R55 Syncope and collapse Office Visit 02/20/2021 9:00a Main Office Slade Mckeon MD R00.2 Palpitations R55 Syncope and collapse I45.19 Other right bundle-branch bl ock Z82.41 Family history of sudden car diac E66.3 Overweight Z71.3 Dietary counseling and surve illance Assessments Date Code Description Provider 05/30/2021 R55 Syncope and collapse Slade dickerson MD 05/07/2021 R55 Syncope and collapse ECHO 03/22/2021 R00.2 Palpitations Holter/Event/Tel emetry 02/20/2021 R00.2 Palpitations Slade Mckeon MD 02/20/2021 R55 Syncope and collapse Slade dickerson MD 02/20/2021 I45.19 Other right bundle-branch block Slade Mckeon MD 02/20/2021 Z82.41 Family history of sudden cardiac Slade Mckeon MD 02/20/2021 E66.3 Overweight lSade Mckeon MD 02/20/2021 Z71.3 Dietary counseling and surveilla nce Slade Mckeon MD Plan of Treatment 05/30/2021 - Slade Mckeon MD* R55 Syncope and collapse * All * Follow up:* No specific arrangements were made for further cardiology follow-up. Functional Status Functional Condition Comment Date Status Independent with all ADL's Activ e Mental Status Description No Information Available Referrals Description No Information Available
--- OUTSIDE RECORDS SUMMARY | 2021-06-28 13:10 | CCD | Continuity of Care Document ---
Author Author Elisabeth MCKEON MD Organization Unknown Address [address] [facility], [place] [address] Phone [phone] Care Team Providers Care Satellite Instruction Facilitator Name Role Phone Nabila Sanchez HIRAM AUTM [phone] Vera Cunha MD AUTM [phone] Problems Active Problems Provider Date Palpitations Slade [...] Indications Ordering Provide r Date Calcium 600+D [id number] Table ts 1 by mouth once a day Unknown 02/19/2021 Vitamin D (Ergocalciferol) 1.25mg (31921 Ut) Capsules 1 by mouth every weekly [...] H/L Range Note Basic Metabolic Panel 02/15/2021 [facility] - not interfac ed (315)- - Glucose 90 70-100 Blood Urea Nitrogen 13 7-18 Creatinine 0.79 0.55-1.30 Sodium 142 136-145 Potassium 3.6 3.5-5.1 Chloride 108 High 98-107 Carbon Dioxide 28 21-32 Calcium 9.2 8.2-9.6 GFR (Calculated) >60.0 >32 CPK & CPK MB 02/15/2021 [facility] - not interfaced (315)- - CPK 391 CPK-MB 2.3 Laboratory test finding 02/15/2021 [facility] - not interf aced (315)- - Troponin <0.02 CBC without Differential 02/15/2021 [facility] - not inter faced (315)- - White Blood Count 8.8 4.0-10.0 Red Blood Count 4.01 4.00-5.40 Platelets 321 150-450 Hemoglobin 12.4 Hematocrit 36.8 Laboratory test finding 01/25/2021 [facility] - not interf aced (315)- - Thyroid Stimulating Hormone 0.857 Free T4 0.82 CBC without Differential 01/18/2021 [facility] - not inter faced (315)- - White Blood Count 10.7 High 4.0-10.0 Red Blood Count 4.42 4.00-5.40 Platelets 323 150-450 Hemoglobin 13.6 Hematocrit 41.5 Procedures Date Code Description Status 05/30/2021 58906 Office/Outpatient Established SF MDM 10-19 Min Completed 05/07/2021 66249 Echocardiogram 2-D Doppler Color Completed 03/22/2021 69599 Multi Event Recorder Interpretat ion Completed 03/22/2021 15213 Multi Event Recorder Hookup Comp leted 02/20/2021 45093 Office/Outpatient New Moderate M DM 45-59 Minutes Completed 02/20/2021 00458 ECG 12-Lead Completed Medical Devices Description No [...]
[2021-06-28] MEDS ORDERED: ESCITALOPRAM (13:23)
[2021-06-28] MEDS ORDERED: GABA-1171 (13:23)
--- OUTSIDE RECORDS SUMMARY | 2021-06-28 16:03 | CCD ---
Author Author [facility] Organization [facility] Address Unknown Phone Unavailable Support Name Relationship Address Phone RADHA DOSS Next Of Kin [address] [facility] [address] [place] [address] KVNG STYLES Next Of Kin [address] [facility] [address] [place] [address] AMRIK Next Of Kin [address] [facility] [address] [place] [address] [place] [address] [place] [address] She Cantu DDS Next Of Kin [address] [place], [place] [id number] Joce Kothari Next Of Kin Unknown Unavaila ble Qazzow Next Of Kin [address] [place] [address] UE Next Of Kin Unknown Unavailable SELF EMPLOYED [place] [address] - ARTHUR KOTHARI Next Of Kin [address] [facility] [address] [place] [address] KATHERINE KOTHARI Next Of Kin [address] [facility] [address] [place] [address] DONTAAASHISH Next Of Kin [address] [place] [address] BEATRIZ MANN Next Of Kin [address] [place] [address] She Cantu DDS Next Of Kin [address] [place] [address] RADHA DOSS ECON [address] [place] [address] Unavailable Kvng Styles ECON [address] [facility] [address] [place] [address] Unavailable ANA KOTHARI ECON [address] [facility] [address] [place] [address] Unavailable Care Team Providers Care Blasting Coal Miner Name Role Phone SRIDEVI, A. GIS INSTRUCTOR ANNETTE Unavailable [phone] SRIDEVI, A. GIS INSTRUCTOR ANNETTE Unavailable [phone] SRIDEVI, A. GIS INSTRUCTOR ANNETTE Unavailable [phone] SRIDEVI, A. GIS INSTRUCTOR ANNETTE Unavailable [phone] SRIDEVI, A. GIS INSTRUCTOR ANNETTE Unavailable [phone] SRIDEVI, A. GIS INSTRUCTOR ANNETTE Unavailable [phone] SRIDEVI, A. GIS INSTRUCTOR ANNETTE Unavailable [phone] SRIDEVI, A. GIS INSTRUCTOR ANNETTE Unavailable [phone] SRIDEVI, A. GIS INSTRUCTOR ANNETTE Unavailable [phone] SRIDEVI, A. GIS INSTRUCTOR ANNETTE Unavailable [phone] SRIDEVI, A. GIS INSTRUCTOR ANNETTE Unavailable [phone] SRIDEVI, A. GIS INSTRUCTOR ANNETTE Unavailable [phone] SRIDEVI, A. GIS INSTRUCTOR ANNETTE Unavailable [phone] SRIDEVI, A. GIS INSTRUCTOR ANNETTE Unavailable [phone] SRIDEVI, A. GIS INSTRUCTOR ANNETTE Unavailable [phone] RANDALL, Nate VALENZUELA MD Unavailable Unavailable ANTECOL, Nate [...] Nate VALENZUELA MD Unavailable Unavailable ANTECOL, Nate VAELNZUELA MD Unavailable Unavailable ANTECOL, Nate VALENZUELA MD [...] is protected by Article 27-F of the [place] State Public Health law. If you continue you may have access to information: Regarding HIV / AIDS; Provided by facilities licensed or operated by the [facility] Office of Mental Health; or Provided by the [facility] Office for People With Developmental Disabilities. If such information is present, then the following [facility] mandated warning applies: This information has [...] law may result in a fine or prison sentence or both. A general authorization for the release of medical or other information is NOT sufficient authorization for further disc losure. Family History Family Member Name Family Member Gender Family Member Status Date o f Status Description Data Source(s) Unknown Unknown Problem MEDENT ([facility], [facility]) Encounters Encounter Providers Location Date Indications Data Source(s ) Outpatient Attender: ANNETTE LAUREANO 06/15 02:05:50 PM EDT - 06/28/2021 03:43:48 PM EDT Doc[facility] ([facility] ) Outpatient Attender: NICOLAS PEREIRA MD Main Office 05/30/2021 11:00:00 AM EDT MEDENT ([facility]) Outpatient [address] [facility] [place] [address] 05/18/2021 12:00:00 AM EDT eCW1 ([facility]) Unknown [address] [facility] [place] [address] 03/09/2021 12:00:00 AM EDT eCW1 ([facility]) Outpatient [address] [facility] [place] [address] 03/08/2021 12:00:00 AM EDT eCW1 ([facility]) Outpatient Attender: NICOLAS PEREIRA MD Main Office 02/20/2021 09:00:00 AM EDT MEDENT ([facility]) Outpatient [address] [facility] [place] [address] 02/16/2021 12:00:00 AM EDT eCW1 ([facility]) [place] [address] [facility] [place] [address] 02/16/2021 12:00:00 AM EDT eCW1 ([facility]) [place] [address] [facility] [place] [address] 02/16/2021 12:00:00 AM EDT eCW1 ([facility]) [place] [address] [facility] [place] [address] 02/02/2021 12:00:00 AM EDT eCW1 ([facility]) [place] [address] [facility] [place] [address] 01/26/2021 12:00:00 AM EDT eCW1 ([facility]) [place] [address] [facility] [place] [address] 01/25/2021 12:00:00 AM EDT eCW1 ([facility]) [place] [address] [facility] [place] [address] 01/18/2021 12:00:00 AM EDT eCW1 ([facility]) [place] [address] [facility] [place] [address] 01/18/2021 12:00:00 AM EDT eCW1 ([facility]) Medications Medication Brand Name Start Date Product [...] 12:00:00 AM EDT ORAL active MEDENT ([facility]) Escitalopram 10 MG Oral Tablet Escitalopram Oxalate 02/19/2021 1 2:00:00 AM EDT ORAL active MEDENT ( [facility]) gabapentin 100 MG Oral Capsule Gabapentin 02/19/2021 12:00:00 AM EDT ORAL active MEDENT ([facility]) Ergocalciferol 32579 UNT Oral Capsule Vitamin D (Ergocalcife rol) 02/19/2021 12:00:00 AM EDT ORAL active M EDENT ([facility]) Calcium Carbonate 600 MG / Cholecalciferol 400 UNT Oral Tabl et Calcium 600+D 02/19/2021 12:00:00 AM EDT ORAL active MEDENT ([facility]) 1,250 mcg (50,000 unit) 02/18/2021 12:00:00 [...] {capsule} active G abapentin 100 MG eCW1 ([facility]) gabapentin 100 MG Oral Capsule Gabapentin 100 MG Gabapentin 100 MG 02/16/2021 12:00:00 AM EDT 1.0 {capsule} active G abapentin 100 MG eCW1 ([facility]) gabapentin 100 MG Oral Capsule Gabapentin 100 MG Gabapentin 100 MG 02/16/2021 12:00:00 AM EDT 1.0 {capsule} active G abapentin 100 MG eCW1 ([facility]) 1,250 mcg (50,000 unit) 01/27/2021 12:00:00 [...] A DAY WITH A MEAL SOLD: 01/27/2021 [facility] Insurance Providers Payer name Policy type / Coverage type Policy ID Covered alliance party ID Covered alliance party's relationship to garcia Policy Garcia Plan Information Medicaid Dental S [id number] S [id number] [facility] [id number] S [id number] [facility] [id number] SP [id number] [facility] Commercial Insurance Co. [id number] Self [id number] ANSI-Not a Secondary Insurance [id number] [facility] O [id number] S [id number] [facility] [id number] SP [id number] [facility] [id number] SP [id number] [facility] [id number] SP [id number] [facility] Commercial [id number] Self [id number] [facility] [id number] SP [id number] [facility] [id number] SP [id number] [facility] [id number] SP [id number] [facility] O [id number] O [id number] [facility] Commercial [id number] Self [id number] [facility] [id number] SP [id number] ANSI-Not a Secondary Insurance [id number] [facility] O [id number] S [id number] ANSI-Not a Secondary Insurance [id number] ANSI-Not a Secondary Insurance [id number] Problems, Conditions, and Diagnoses Code Display Name Description Problem Type Effective Dates Data Source(s) M25.50 [id number] Arthralgia of multiple joints Problem 03/08/2021 12:00:00 AM EDT eC1 ([facility]) I83.811 [id number] Varicose veins of right lower extremity with pain Problem 03/08/2021 12:00:00 AM EDT eC1 ([facility]) R00.2 [id number] Palpitations Problem 03/08/2021 12:00:00 AM EDT eC ([facility]) Z71.3 Dietary management surveillance Dietary management caryl veillance Problem 02/20/2021 12:00:00 AM EDT [facility] E66.3 Overweight Overweight Problem 02/20/2021 12:00:00 AM ED T [facility]) I45.19 Right bundle branch block Right bundle branch block Pr oblem 02/20/2021 12:00:00 AM EDT [facility]) Z82.41 Family history of sudden Family history of sudde n Problem 02/20/2021 12:00:00 AM EDT [facility]) R55 Syncope and collapse Syncope and collapse Problem 02/20/2021 12:00:00 AM EDT [facility] ([facility]) R00.2 Palpitations Palpitations Problem 02/20/2021 12:00:00 A M EDT [facility]) R20.2 [id number] Paresthesias Problem 02/16/2021 12:00:00 AM EDT eC ([facility]) Surgeries/Procedures Procedure Description Date Indications Data Source(s) OFFICE OUTPATIENT VISIT 10 MINUTES 05/30/2021 12:00:00 AM EDT [facility]) ECHO TTHRC R-T 2D W/WOM-MODE COMPL SPEC&COLR DOP 05/07 12:00:00 AM EDT [facility]) XTRNL PT ACTIVATED ECG RECORD MONITOR 30 DAYS 03/22/20 12:00:00 AM EDT MED[facility] ([facility]) XTRNL PT ACTIVTD ECG DWNLD 30 DAYS PHYS R&I 03/22/2021 12:00:00 AM EDT MED[facility] ([facility]) ECG ROUTINE ECG W/LEAST 12 LDS W/I&R 02/20/2021 12:00: 00 AM EDT MED[facility] ([facility]) OFFICE OUTPATIENT NEW 45 MINUTES 02/20/2021 12:00:00 A M EDT MED[facility] ([facility]) Results ID Date Data Source [id number] 02/15/2021 09:10:00 AM EDT MEDENT ([facility]) Name Value Range Interpretation Code Description Data Nora rce(s) Supporting Document(s) Platelets 321 150-450 MED[facility] ([facility]) Red Blood Count 4.01 4.00-5.40 MED[facility] ([facility]) White Blood Count 8.8 4.0-10.0 [facility] Hematocrit 36.8 MED[facility] ([facility]) Hemoglobin 12.4 [facility] ([facility]) ID Date Data Source [id number] 02/15/2021 09:10:00 AM EDT [facility] ([facility] Name Value Range Interpretation Code Description Data Nora rce(s) Supporting Document(s) Troponin Laboratory test result MED[facility] ([facility]) ID Date Data Source [id number] 02/15/2021 09:10:00 AM EDT [facility] ([facility] Name Value Range Interpretation Code Description Data Nora rce(s) Supporting Document(s) Creatine kinase [Enzymatic activity/volume] in Serum or Plasma 391 MEDENT ([facility]) CPK-MB 2.3 MED[facility] ([facility]) ID Date Data Source [id number] 02/15/2021 09:10:00 AM EDT [facility] Name Value Range Interpretation Code Description Data Nora rce(s) Supporting Document(s) Creatinine 0.79 0.55-1.30 MED[facility] ([facility]) Glucose 90 70-100 MED[facility] ([facility]) Blood Urea Nitrogen 13 7-18 MEDENT ([facility]) Sodium 142 136-145 [facility] Potassium 3.6 3.5-5.1 [facility] ([facility]) Chloride 108 98-107 [facility]) Calcium 9.2 8.2-9.6 [facility] ([facility] Carbon Dioxide 28 21-32 MED[facility] ([facility]) Glomerular filtration rate/1.73 sq M.pre dicted [Volume Rate/Area] in Serum or Plasma by Creatinine-based formula (MDRD) Laboratory test result MEDENT ([facility]) ID Date Data Source [id number] 01/25/2021 11:43:00 AM EDT MED[facility] ([facility]) Name Value Range Interpretation Code Description Data Nora rce(s) Supporting Document(s) Thyroid Stimulating Hormone 0.857 ME DENT ([facility]) Free T4 0.82 [facility] ID Date Data Source VITAMIN D [id number] 01/25/2021 12:00:00 AM EDT eCW1 ([facility]) Name Value Range Interpretation Code Description Data Nora rce(s) Supporting Document(s) 23.0 30.0-100.0 TOTAL 25(OH) VITAMIN D eC W1 ([facility]) ID Date Data Source FREE T4 & TSH PANEL 01/25/2021 12:00:00 AM EDT eCW1 ([facility]) Name Value Range Interpretation Code Description Data Nora rce(s) Supporting Document(s) 0.857 0.358-3.740 THYROID STIMULATING HORM ONE eCW1 ([facility]) 0.82 0.76-1.46 FREE T4 eCW1 (Counts include 234 beds at the [facility]) ID Date Data Source [id number] 01/18/2021 11:44:00 AM EDT MEDENT ([facility]) Name Value Range Interpretation Code Description Data Nora rce(s) Supporting Document(s) Red Blood Count 4.42 4.00-5.40 MED[facility] ([facility]) White Blood Count 10.7 4.0-10.0 MED[facility] ([facility]) Hematocrit 41.5 MED[facility] ([facility]) Hemoglobin 13.6 MED[facility] ([facility]) Platelets 323 150-450 [facility] Procedure Social History Code Duration Value Status Description Data Source(s ) Smoking 05/30/2021 12:00:00 AM EDT Patient has never smoked co mpleted Patient has never smoked MEDENT ([facility]) Smoking 05/18/2021 12:00:00 AM EDT Former Smoker completed Former Smoker eCW1 ([facility]) Smoking 03/08/2021 12:00:00 AM EDT Former Smoker completed Former Smoker eCW1 ([facility]) Smoking 03/08/2021 12:00:00 AM EDT Former Smoker completed Former Smoker eCW1 ([facility]) Smoking 02/16/2021 12:00:00 AM EDT Former Smoker completed Former Smoker eCW1 ([facility]) Smoking 02/16/2021 12:00:00 AM EDT Former Smoker completed Former Smoker eCW1 ([facility]) Smoking 02/16/2021 12:00:00 AM EDT Former Smoker completed Former Smoker eCW1 ([facility]) Smoking 01/25/2021 12:00:00 AM EDT Former Smoker completed Former Smoker eCW1 ([facility]) Smoking 01/25/2021 12:00:00 AM EDT Former Smoker completed Former Smoker eCW1 ([facility]) Smoking 01/25/2021 12:00:00 AM EDT Former Smoker completed Former Smoker eCW1 ([facility]) Vital Signs ID Date Data Source UNK Name Value Range Interpretation Code Description Data Source(s) Body weight 187.00 [lb_av] 187.00 [lb_av] MEDEN T ([facility]) Body height 66 [in_i] 66 [in_i] [facility] ([facility]) 5'6" Body mass index (BMI) [Ratio] 30.2 kg/m2 30.2 k g/m2 MEDENT ([facility]) Heart rate 67 /min 67 /min [facility] ([facility]) Systolic blood pressure--sitting 114 mm[Hg] 114 mm[Hg] MEDENT ([facility]) Omron large cuff, Ra Diastolic blood pressure--sitting 73 mm[Hg] 73 mm[Hg] MEDENT ([facility]) Omron large cuff, Ra Body weight 184 [lb_av] 184 [lb_av] eCW1 ([facility]) Body height 66 [in_i] 66 [in_i] eCW1 ([facility]) Body mass index (BMI) [Ratio] 29.70 kg/m2 29.70 kg/m2 eCW1 ([facility]) Heart rate 70 /min 70 /min eCW1 ([facility]) Respiratory rate 18 /min 18 /min eCW1 ([facility]) Body temperature 97.9 [degF] 97.9 [degF] eCW1 ( [facility]) Systolic blood pressure 120 mm[Hg] 120 mm[Hg] e CW1 ([facility]) Diastolic blood pressure 70 mm[Hg] 70 mm[Hg] eCW1 ([facility]) Body weight 179 [lb_av] 179 [lb_av] eCW1 ([facility]) Body height 66 [in_i] 66 [in_i] eCW1 ([facility]) Body mass index (BMI) [Ratio] 28.89 kg/m2 28.89 kg/m2 eCW1 ([facility]) Heart rate 87 /min 87 /min eCW1 ([facility]) Respiratory rate 20 /min 20 /min eCW1 ([facility]) Body temperature 97 [degF] 97 [degF] eCW1 ([facility]) Systolic blood pressure 120 mm[Hg] 120 mm[Hg] e CW1 ([facility]) Diastolic blood pressure 70 mm[Hg] 70 mm[Hg] eCW1 ([facility]) Diastolic blood pressure--sitting 67 mm[Hg] 67 mm[Hg] MEDENT ([facility]) Omron, adult cuff/Ra; HR: 71 bpm Systolic blood pressure--standing 109 mm[Hg] 10 9 mm[Hg] MEDENT ([facility]) Omron, adult cuff/Ra; HR: 82 bpm Systolic blood pressure--sitting 111 mm[Hg] 111 mm[Hg] MEDENT ([facility]) Omron, adult cuff/Ra; HR: 71 bpm Body weight 183.00 [lb_av] 183.00 [lb_av] MEDEN T ([facility]) Body height 66 [in_i] 66 [in_i] MEDENT ([facility]) 5'6" Body mass index (BMI) [Ratio] 29.5 kg/m2 29.5 k g/m2 MED[facility] ([facility]) Heart rate 71 /min 71 /min MED[facility] ([facility]) Systolic blood pressure--supine 119 mm[Hg] 119 mm[Hg] MEDENT ([facility]) Omron, adult cuff/Ra; HR: 69 bpm Diastolic blood pressure--supine 65 mm[Hg] 65 mm[Hg] MED[facility] ([facility]) Omron, adult cuff/Ra; HR: 69 bpm Diastolic blood pressure--standing 70 mm[Hg] 7 0 mm[Hg] MED[facility] ([facility]) Omron, adult cuff/Ra; HR: 82 bpm Body weight 182 [lb_av] 182 [lb_av] eCW1 ([facility]) Body height 66 [in_i] 66 [in_i] eCW1 ([facility]) Body mass index (BMI) [Ratio] 29.37 kg/m2 29.37 kg/m2 eCW1 ([facility]) Heart rate 83 /min 83 /min eCW1 ([facility]) Respiratory rate 18 /min 18 /min eCW1 ([facility]) Body temperature 97.3 [degF] 97.3 [degF] eCW1 ( [facility]) Systolic blood pressure 128 mm[Hg] 128 mm[Hg] e CW1 ([facility]) Diastolic blood pressure 86 mm[Hg] 86 mm[Hg] eCW1 ([facility]) Body weight 184 [lb_av] 184 [lb_av] eCW1 ([facility]) Body height 66 [in_i] 66 [in_i] eCW1 ([facility]) Body mass index (BMI) [Ratio] 29.70 kg/m2 29.70 kg/m2 eCW1 ([facility]) Heart rate 80 /min 80 /min eCW1 ([facility]) Respiratory rate 18 /min 18 /min eCW1 ([facility]) Body temperature 97 [degF] 97 [degF] eCW1 ([facility]) Systolic blood pressure 120 mm[Hg] 120 mm[Hg] e CW1 ([facility]) Diastolic blood pressure 70 mm[Hg] 70 mm[Hg] eCW1 ([facility]) Patient Treatment Plan of Care Planned Activity Planned Date Details Description Data Source (s) gabapentin 100 MG Oral Capsule 02/16/2021 12:00:00 AM EDT eCW1 ([facility]) gabapentin 100 MG Oral Capsule 02/16/2021 12:00:00 AM EDT eCW1 ([facility]) gabapentin 100 MG Oral Capsule 02/16/2021 12:00:00 AM EDT eCW1 ([facility])
== END 2021-06-28 15:56 | disposition left against medical advice (07) ==
LOC: M ED 13:00
DX: Z53.21 Procedure and treatment not carried out due to patient leaving prior to being seen by health care provider (principal)

== ENCOUNTER → 2021-08-13 | Outpatient (CLI) | payer OTHER ==
[~2021-08-13] MED LIST changes: +ADVA115A INH; +ALBU8.5H INH; +ESCITALOPRAM; +FLON1SPR; +GABA-1171
[2021-08-13 16:32] LABS: RHEUMATOID FACTOR QUANT < 10.0 IU/ML (<15.0)
[2021-08-13 16:46] LABS: FOLATE 4.4 NG/ML; TOTAL 25(OH) VITAMIN D 37.8 NG/ML (30.0-100.0); VITAMIN B12 LEVEL 453 PG/ML
[2021-08-15 19:07] LABS: ANA (HEP2) Negative (.); Lyme Disease IgG/IgM Antibodie <0.91 ISR (0.00-0.90); Lyme Disease IgM Ab Quantitati <0.80 index (0.00-0.79)
== END ==
LOC: M PLALAB 13:06
PROVIDERS: ATTEND Nurse Practitioner Family
DX: M25.50 Pain in unspecified joint (principal); R20.2 Paresthesia of skin; E55.9 Vitamin D deficiency, unspecified

== ENCOUNTER → 2021-10-15 | Outpatient (CLI) | payer OTHER | LOC: M WHC 08:41 | PROVIDERS: ATTEND Physician Assistant Medical | DX: Z12.31 Encounter for screening mammogram for malignant neoplasm of breast (principal) ==

== ENCOUNTER → 2021-10-20 | Outpatient (CLI) | payer OTHER | LOC: M LABSMTC 10:31 | PROVIDERS: ATTEND Anesthesiology | DX: Z01.818 Encounter for other preprocedural examination (principal); Z11.52 Encounter for screening for COVID-19 ==

== ENCOUNTER 2021-10-25 11:04 | Day surgery (SDC) | payer OTHER ==
[~2021-10-25] VITALS: Ht 193 cm; Wt 89.7 kg
[~2021-10-25 11:04] MED LIST changes: +NS 1,000 ML IV ONE
[2021-10-25] MEDS ORDERED: LIDOCAINE 2% 100MG/5ML SDV (FOR ANES.) As Ordered ONE (12:15)
[2021-10-25] MEDS ORDERED: propofoL 500 MG/50 ML VIAL As Ordered ONE (12:16)
[2021-10-25] MEDS ORDERED: GLYCOPYRROLATE INJ 0.2 MG/ML 2 ML VIAL As Ordered ONE (12:33)
[2021-10-25 14:03] VITALS: BP 113/61
== END 2021-10-25 14:11 | disposition home or self-care (01) ==
LOC: M OPP 11:04
PROVIDERS: ATTEND Surgery
DX: K62.5 Hemorrhage of anus and rectum (principal); K57.30 Diverticulosis of large intestine without perforation or abscess without bleeding; K64.8 Other hemorrhoids; K22.89 Other specified disease of esophagus; R13.10 Dysphagia, unspecified; Z79.899 Other long term (current) drug therapy; Z91.030 Bee allergy status; Z91.018 Allergy to other foods; Z87.891 Personal history of nicotine dependence

== ENCOUNTER → 2022-10-18 | Outpatient (CLI) | payer OTHER ==
[~2022-10-18] MED LIST changes: -NS 1,000 ML IV ONE
[2022-10-18 13:34] LABS: BASO # 0.1 10^3/uL (0.0-0.2); BASO % 0.9 % (0.0-1.0); EOS # 0.6 10^3/uL (0.0-0.5); HEMATOCRIT 42.1 % (36.0-47.0); HEMOGLOBIN 13.6 g/dl (12.0-15.5); LYMPH # 2.5 10^3/uL (1.5-5.0); MEAN CORPUSCULAR HEMOGLOBIN 29.7 pg (27.0-33.0); MEAN CORPUSCULAR HGB CONC 32.3 g/dl (32.0-36.5); MEAN CORPUSCULAR VOLUME 91.9 fl (80.0-96.0); MONO # 0.7 10^3/uL (0.0-0.8); MONO % 5.7 % (2.0-8.0); NEUTROPHILS # 7.5 10^3/uL (1.5-8.5); NEUTROPHILS % 65.7 % (36.0-66.0); PLATELET COUNT, AUTOMATED 306 10^3/uL (150-450); RED BLOOD COUNT 4.58 10^6/uL (4.00-5.40); WHITE BLOOD COUNT 11.4 10^3/uL (4.0-10.0)
[2022-10-18 13:58] LABS: ALKALINE PHOSPHATASE 102 U/L (46-116); ALT/SGPT 31 U/L (7.0-40); AST/SGOT 26 U/L (<34); BLOOD UREA NITROGEN 10 MG/DL (9-23); CALCIUM LEVEL 9.3 MG/DL (8.5-10.1); CARBON DIOXIDE LEVEL 29 MMOL/L (20-31); CHLORIDE LEVEL 105 MMOL/L (98-107); CHOLESTEROL LEVEL 183 MG/DL (<200); CHOLESTEROL RISK RATIO 3.97 (<5); CREATININE FOR GFR 0.78 MG/DL (0.55-1.30); FREE T4 0.98 NG/DL (0.89-1.76); GLOMERULAR FILTRATION RATE > 60.0 (>58); GLUCOSE, FASTING 109 MG/DL (60-100); LDL CHOLESTEROL 108.2 MG/DL (<100); NON-HDL-C 137 MG/DL; POTASSIUM SERUM 4.4 MMOL/L (3.5-5.1); SODIUM LEVEL 143 MMOL/L (136-145); THYROID STIMULATING HORMONE 4.362 uIU/ML (0.55-4.78); TOTAL PROTEIN 7.1 G/DL (5.7-8.2); TRIGLYCERIDES LEVEL 144 MG/DL (<150)
[2022-10-18 13:59] LABS: TOTAL 25(OH) VITAMIN D 33.9 NG/ML (20.0-100.0)
[2022-10-18 14:09] LABS: HEMOGLOBIN A1c 6.1 % (4.0-6.0)
[2022-10-18 14:27] LABS: APPEARANCE, URINE MANUAL CLEAR (CLEAR); BILIRUBIN, URINE MANUAL NEGATIVE (NEGATIVE); BLOOD URINE MANUAL POSITIVE (NEGATIVE); COLOR, URINE MANUAL YELLOW (YELLOW); GLUCOSE, URINE (UA) MANUAL NEGATIVE (NEGATIVE); KETONE, URINE MANUAL NEGATIVE (NEGATIVE); LEUKOCYTE ESTERASE, URINE MAN NEGATIVE (NEGATIVE); NITRITE, URINE MANUAL NEGATIVE (NEGATIVE); PROTEIN, URINE MANUAL NEGATIVE (NEGATIVE); UROBILINOGEN, URINE MANUAL NORMAL (NORMAL)
[2022-10-18 14:42] LABS: BACTERIA, URINE NONE SEEN; RBC, URINE NONE SEEN /hpf (0-3); SQUAMOUS EPITHELIAL CELL URINE SMALL AMOUNT /hpf (SMALL AMT); WBC, URINE NONE SEEN /hpf (0-3)
[2022-10-18 14:43] LABS: HYALINE CAST, URINE NONE SEEN /lpf (0-1)
[2022-10-18 15:08] LABS: PTH INTACT 96.8 PG/ML (18.5-88.0)
== END ==
LOC: M PLALAB 12:06
PROVIDERS: ATTEND Physician Assistant Medical
DX: R30.0 Dysuria (principal); F41.9 Anxiety disorder, unspecified; E55.9 Vitamin D deficiency, unspecified; J45.40 Moderate persistent asthma, uncomplicated; Z13.1 Encounter for screening for diabetes mellitus; Z13.220 Encounter for screening for lipoid disorders; Z13.228 Encounter for screening for other metabolic disorders

== ENCOUNTER → 2022-11-01 | Outpatient (CLI) | payer OTHER | LOC: M PLAIMG 09:48 | PROVIDERS: ATTEND Physician Assistant Medical | DX: R31.29 Other microscopic hematuria (principal); K80.20 Calculus of gallbladder without cholecystitis without obstruction; K57.30 Diverticulosis of large intestine without perforation or abscess without bleeding ==

== ENCOUNTER → 2022-12-27 | Outpatient (REF) | payer OTHER ==
[2022-12-27 14:41] LABS: APPEARANCE, URINE CLEAR (CLEAR); BACTERIA, URINE AUTO 2+ (NEGATIVE); BILIRUBIN, URINE AUTO NEGATIVE (NEGATIVE); BLOOD, URINE BLOOD 1+ (NEGATIVE); COLOR, URINE YELLOW (YELLOW); GLUCOSE, URINE (UA) AUTO NEGATIVE (NEGATIVE); KETONE, URINE AUTO NEGATIVE (NEGATIVE); LEUKOCYTE ESTERASE, URINE AUTO NEGATIVE (NEGATIVE); NITRITE, URINE AUTO NEGATIVE (NEGATIVE); PROTEIN, URINE AUTO NEGATIVE (NEGATIVE); RBC, URINE AUTO 2 /HPF (0-3); SPECIFIC GRAVITY URINE AUTO 1.009 (1.002-1.035); SQUAMOUS EPITHELIAL CELL UR AU 2 /HPF (0-6); UROBILINOGEN, URINE AUTO 0.2 mg/dL (0.0-2.0); WBC, URINE AUTO 3 /HPF (0-3)
== END ==
LOC: M SFHCPLAZ 13:03
PROVIDERS: ATTEND Physician Assistant Medical
DX: R31.29 Other microscopic hematuria (principal)

== ENCOUNTER → 2023-02-03 | Outpatient (CLI) | payer OTHER ==
[~2023-02-03] MED LIST changes: +ALLE180T33 PO; -ERGO500029; +ERGO500029 PO; +OMEP-173 PO; +PARO5TAB PO; +VITA100093 PO
== END ==
LOC: M EKG 10:20
PROVIDERS: ATTEND Internal Medicine
DX: G47.30 Sleep apnea, unspecified (principal)

== ENCOUNTER 2023-02-07 06:00 | Day surgery (SDC) | payer OTHER ==
[~2023-02-07] VITALS: Ht 160 cm; Wt 101.0 kg
[~2023-02-07 06:00] MED LIST changes: +LevoFLOXacin IV 750 MG in IV 1 EA IV SCH
[2023-02-07] MEDS ORDERED: LR 1,000 ML IV SCH ×2 (06:30→08:55)
[2023-02-07] MEDS ORDERED: LevoFLOXacin IV 750 MG in IV 1 EA IV ONE (07:12)
[2023-02-07] MEDS ORDERED: LIDOCAINE 2% 100MG/5ML SDV (FOR ANES.) As Ordered ONE (07:13)
[2023-02-07] MEDS ORDERED: fentaNYL 100 MCG/2 ML INJECTION As Ordered ONE (07:13)
[2023-02-07] MEDS ORDERED: ROCURONIUM BROMIDE 50MG/5ML VIAL As Ordered ONE (07:13)
[2023-02-07] MEDS ORDERED: propofoL 200 MG/20 ML VIAL As Ordered ONE (07:13)
[2023-02-07] MEDS ORDERED: MIDAZOLAM INJ 2MG/2ML VIAL As Ordered ONE (07:13)
[2023-02-07] MEDS ORDERED: BUPIVACAINE HCL 0.25% 30ML VIAL As Ordered ONE (07:17)
[2023-02-07] MEDS ORDERED: LIDOCAINE 1% SDV 30ML VIAL As Ordered ONE (07:17)
[2023-02-07] MEDS ORDERED: INDOCYANINE GREEN 25MG VIAL (IC-GREEN) As Ordered ONE (07:23)
[2023-02-07] MEDS ORDERED: GLYCOPYRROLATE INJ 0.2 MG/ML 2 ML VIAL As Ordered ONE (07:59)
[2023-02-07] MEDS ORDERED: HYDROmorphone HCL 2MG/ML 1ML VIAL As Ordered ONE (08:18)
[2023-02-07] MEDS ORDERED: ONDANSETRON 4MG 2ML VIAL As Ordered ONE (08:34)
[2023-02-07] MEDS ORDERED: ACETAMINOPHEN 1000MG 100ML IV BAG As Ordered ONE (08:36)
[2023-02-07] MEDS ORDERED: SUGAMMADEX SODIUM 500 MG/5 ML VIAL (BRIDION) As Ordered ONE (08:47)
[2023-02-07] MEDS ORDERED: ONDANSETRON 4MG 2ML VIAL IV PRN (08:55)
[2023-02-07] MEDS ORDERED: fentaNYL 100 MCG/2 ML INJECTION IV PRN (08:55)
[2023-02-07] MEDS ORDERED: NORCO, ANEXSIA 5/325MG TABLET (HYDROcodone/ACETAMINOPHEN) PO PRN ×2 (10:10)
[2023-02-07] MEDS: HYDROMORPHONE HCL 0.5 MG/ 0.5 ML SYRINGE IV PRN ×2 (10:19→10:29)
[2023-02-07] MEDS: oxyCODONE 5MG TAB PO PRN ×2 (10:22→10:36)
[2023-02-07 11:50] VITALS: BP 123/65; TEMP 97.4; O2SAT 95
[2023-02-07] MEDS ORDERED: KETOROLAC 30 MG/ML 1ML VIAL IV SCH (12:00)
== END 2023-02-07 12:00 | disposition home or self-care (01) ==
LOC: M SDC 06:00
PROVIDERS: ATTEND Surgery
DX: K80.10 Calculus of gallbladder with chronic cholecystitis without obstruction (principal); K21.9 Gastro-esophageal reflux disease without esophagitis; R19.7 Diarrhea, unspecified; G43.909 Migraine, unspecified, not intractable, without status migrainosus; J45.909 Unspecified asthma, uncomplicated; G47.33 Obstructive sleep apnea (adult) (pediatric); Z88.0 Allergy status to penicillin; Z88.2 Allergy status to sulfonamides; Z91.030 Bee allergy status; Z91.013 Allergy to seafood; F41.9 Anxiety disorder, unspecified; F32.A Depression, unspecified
CPT/HCPCS: 47563; 88304; J0131; J1100; J1170; J1956; J2250; J2405; J3010; Q9968; S0020; S2900

== ENCOUNTER → 2023-03-13 | Outpatient (REF) | payer OTHER ==
[~2023-03-13] MED LIST changes: -LevoFLOXacin IV 750 MG in IV 1 EA IV SCH
[2023-03-13 14:29] LABS: APPEARANCE, URINE CLEAR (CLEAR); BACTERIA, URINE AUTO 1+ (NEGATIVE); BILIRUBIN, URINE AUTO NEGATIVE (NEGATIVE); BLOOD, URINE BLOOD 1+ (NEGATIVE); COLOR, URINE STRAW (YELLOW); GLUCOSE, URINE (UA) AUTO NEGATIVE (NEGATIVE); KETONE, URINE AUTO NEGATIVE (NEGATIVE); LEUKOCYTE ESTERASE, URINE AUTO NEGATIVE (NEGATIVE); NITRITE, URINE AUTO NEGATIVE (NEGATIVE); PROTEIN, URINE AUTO NEGATIVE (NEGATIVE); RBC, URINE AUTO 0 /HPF (0-3); SPECIFIC GRAVITY URINE AUTO 1.003 (1.002-1.035); SQUAMOUS EPITHELIAL CELL UR AU 1 /HPF (0-6); UROBILINOGEN, URINE AUTO 0.2 mg/dL (0.0-2.0); WBC, URINE AUTO 0 /HPF (0-3)
== END ==
LOC: M LABSMT 10:14
PROVIDERS: ATTEND Specialist
DX: R31.0 Gross hematuria (principal)

== ENCOUNTER → 2023-04-25 | Outpatient (REF) | payer OTHER | LOC: M LABSMT 14:46 | PROVIDERS: ATTEND Urology | DX: R31.29 Other microscopic hematuria (principal); R82.89 Other abnormal findings on cytological and histological examination of urine ==

== ENCOUNTER → 2023-05-02 | Outpatient (CLI) | payer OTHER ==
[2023-05-02 13:46] LABS: BASO # 0.1 10^3/uL (0.0-0.2); BASO % 0.8 % (0.0-1.0); EOS # 0.9 10^3/uL (0.0-0.5); EOS % 8.2 % (0.0-3.0); HEMATOCRIT 39.3 % (36.0-47.0); LYMPH % 18.3 % (24.0-44.0); MEAN CORPUSCULAR HEMOGLOBIN 30.2 pg (27.0-33.0); MEAN CORPUSCULAR HGB CONC 33.1 g/dl (32.0-36.5); MEAN CORPUSCULAR VOLUME 91.2 fl (80.0-96.0); MONO # 0.7 10^3/uL (0.0-0.8); MONO % 6.4 % (2.0-8.0); NEUTROPHILS # 7.3 10^3/uL (1.5-8.5); NEUTROPHILS % 65.2 % (36.0-66.0); PLATELET COUNT, AUTOMATED 301 10^3/uL (150-450); RED BLOOD COUNT 4.31 10^6/uL (4.00-5.40); WHITE BLOOD COUNT 11.2 10^3/uL (4.0-10.0)
[2023-05-02 14:13] LABS: ALBUMIN 3.6 G/DL (3.2-5.2); ALKALINE PHOSPHATASE 99 U/L (46-116); ALT/SGPT 46 U/L (7.0-40); AST/SGOT 20 U/L (<34); BILIRUBIN,TOTAL 1.1 MG/DL (0.3-1.2); BLOOD UREA NITROGEN 10 MG/DL (9-23); CALCIUM LEVEL 8.8 MG/DL (8.5-10.1); CARBON DIOXIDE LEVEL 27 MMOL/L (20-31); CHLORIDE LEVEL 104 MMOL/L (98-107); CHOLESTEROL LEVEL 173 MG/DL (<200); CHOLESTEROL RISK RATIO 3.33 (<5); CREATININE FOR GFR 0.74 MG/DL (0.55-1.30); GLOMERULAR FILTRATION RATE > 60.0 (>58); GLUCOSE, FASTING 106 MG/DL (60-100); HDL CHOLESTEROL 51.9 MG/DL (>40); LDL CHOLESTEROL 94.3 MG/DL (<100); NON-HDL-C 121.1 MG/DL; POTASSIUM SERUM 4.1 MMOL/L (3.5-5.1); SODIUM LEVEL 138 MMOL/L (136-145); TOTAL PROTEIN 6.7 G/DL (5.7-8.2); TRIGLYCERIDES LEVEL 134 MG/DL (<150)
[2023-05-02 14:21] LABS: HEMOGLOBIN A1c 5.9 % (4.0-6.0)
== END ==
LOC: M PLALAB 11:39
PROVIDERS: ATTEND Physician Assistant Medical
DX: R73.01 Impaired fasting glucose (principal); Z13.220 Encounter for screening for lipoid disorders; K76.0 Fatty (change of) liver, not elsewhere classified; K21.00 Gastro-esophageal reflux disease with esophagitis, without bleeding

== ENCOUNTER → 2023-07-11 | Outpatient (REF) | payer OTHER ==
[2023-07-11 17:39] LABS: APPEARANCE, URINE CLEAR (CLEAR); BACTERIA, URINE AUTO 1+ (NEGATIVE); BILIRUBIN, URINE AUTO NEGATIVE (NEGATIVE); BLOOD, URINE BLOOD NEGATIVE (NEGATIVE); COLOR, URINE AMBER (YELLOW); GLUCOSE, URINE (UA) AUTO NEGATIVE (NEGATIVE); KETONE, URINE AUTO NEGATIVE (NEGATIVE); LEUKOCYTE ESTERASE, URINE AUTO NEGATIVE (NEGATIVE); NITRITE, URINE AUTO POSITIVE (NEGATIVE); PROTEIN, URINE AUTO NEGATIVE (NEGATIVE); RBC, URINE AUTO 2 /HPF (0-3); SPECIFIC GRAVITY URINE AUTO 1.015 (1.002-1.035); SQUAMOUS EPITHELIAL CELL UR AU 1 /HPF (0-6); WBC, URINE AUTO 0 /HPF (0-3)
== END ==
LOC: M SMT 16:58
PROVIDERS: ATTEND Specialist
DX: R31.29 Other microscopic hematuria (principal)

== ENCOUNTER → 2023-09-05 | Outpatient (CLI) | payer OTHER ==
[2023-09-05 17:41] LABS: ALKALINE PHOSPHATASE 98 U/L (46-116); ALT/SGPT 55 U/L (7.0-40); AST/SGOT 32 U/L (<34); BILIRUBIN,TOTAL 1.1 MG/DL (0.3-1.2); BLOOD UREA NITROGEN 9 MG/DL (9-23); CALCIUM LEVEL 9.2 MG/DL (8.5-10.1); CARBON DIOXIDE LEVEL 28 MMOL/L (20-31); CHLORIDE LEVEL 102 MMOL/L (98-107); CREATININE FOR GFR 0.73 MG/DL (0.55-1.30); GLOMERULAR FILTRATION RATE > 60.0 (>58); GLUCOSE, FASTING 153 MG/DL (60-100); POTASSIUM SERUM 4.3 MMOL/L (3.5-5.1); SODIUM LEVEL 137 MMOL/L (136-145); TOTAL PROTEIN 7.2 G/DL (5.7-8.2)
== END ==
LOC: M PLALAB 12:09
PROVIDERS: ATTEND Physician Assistant Medical
DX: K76.0 Fatty (change of) liver, not elsewhere classified (principal)

== ENCOUNTER → 2023-12-31 | Outpatient (CLI) | payer OTHER ==
[2023-12-31 14:15] LABS: ALBUMIN 3.9 G/DL (3.2-5.2); ALKALINE PHOSPHATASE 103 U/L (46-116); ALT/SGPT 93 U/L (7.0-40); AST/SGOT 56 U/L (<34); BILIRUBIN,TOTAL 0.9 MG/DL (0.3-1.2); BLOOD UREA NITROGEN 16 MG/DL (9-23); CALCIUM LEVEL 9.6 MG/DL (8.5-10.1); CARBON DIOXIDE LEVEL 31 MMOL/L (20-31); CHLORIDE LEVEL 102 MMOL/L (98-107); CHOLESTEROL LEVEL 174 MG/DL (<200); CHOLESTEROL RISK RATIO 3.75 (<5); CREATININE FOR GFR 0.75 MG/DL (0.55-1.30); GLOMERULAR FILTRATION RATE > 60.0 (>58); GLUCOSE, FASTING 167 MG/DL (60-100); HDL CHOLESTEROL 46.4 MG/DL (>40); NON-HDL-C 127.6 MG/DL; POTASSIUM SERUM 4.4 MMOL/L (3.5-5.1); SODIUM LEVEL 136 MMOL/L (136-145); TOTAL PROTEIN 6.8 G/DL (5.7-8.2); TRIGLYCERIDES LEVEL 148 MG/DL (<150)
[2023-12-31 14:20] LABS: BASO # 0.1 10^3/uL (0.0-0.2); BASO % 0.7 % (0.0-1.0); EOS # 0.6 10^3/uL (0.0-0.5); EOS % 6.1 % (0.0-3.0); HEMATOCRIT 42.1 % (36.0-47.0); HEMOGLOBIN 14.1 g/dl (12.0-15.5); LYMPH # 2.2 10^3/uL (1.5-5.0); LYMPH % 20.7 % (24.0-44.0); MEAN CORPUSCULAR HEMOGLOBIN 30.6 pg (27.0-33.0); MEAN CORPUSCULAR HGB CONC 33.5 g/dl (32.0-36.5); MEAN CORPUSCULAR VOLUME 91.3 fl (80.0-96.0); MONO # 0.7 10^3/uL (0.0-0.8); MONO % 6.3 % (2.0-8.0); NEUTROPHILS # 6.9 10^3/uL (1.5-8.5); NEUTROPHILS % 65.4 % (36.0-66.0); PLATELET COUNT, AUTOMATED 334 10^3/uL (150-450); RED BLOOD COUNT 4.61 10^6/uL (4.00-5.40); WHITE BLOOD COUNT 10.6 10^3/uL (4.0-10.0)
[2023-12-31 14:59] LABS: HEMOGLOBIN A1c 7.9 % (4.0-6.0)
== END ==
LOC: M PLALAB 11:13
PROVIDERS: ATTEND Physician Assistant Medical
DX: K21.00 Gastro-esophageal reflux disease with esophagitis, without bleeding (principal); Z13.220 Encounter for screening for lipoid disorders

== ENCOUNTER → 2024-02-06 | Outpatient (CLI) | payer OTHER | LOC: M WHC 08:51 | PROVIDERS: ATTEND Physician Assistant Medical | DX: Z12.31 Encounter for screening mammogram for malignant neoplasm of breast (principal); R92.323 Mammographic fibroglandular density, bilateral breasts; K76.0 Fatty (change of) liver, not elsewhere classified ==

== ENCOUNTER → 2024-06-03 | Outpatient (CLI) | payer OTHER ==
[~2024-06-03] MED LIST changes: +ONDA-282 PO; -ONDA4TAB6 PO
[2024-06-03 14:49] LABS: ALBUMIN 4.1 G/DL (3.2-5.2); ALKALINE PHOSPHATASE 84 U/L (46-116); ALT/SGPT 45 U/L (7.0-40); AST/SGOT 23 U/L (<34); BILIRUBIN,TOTAL 1.1 MG/DL (0.3-1.2); BLOOD UREA NITROGEN 9 MG/DL (9-23); CALCIUM LEVEL 9.8 MG/DL (8.5-10.1); CARBON DIOXIDE LEVEL 29 MMOL/L (20-31); CHLORIDE LEVEL 108 MMOL/L (98-107); CREATININE FOR GFR 0.74 MG/DL (0.55-1.30); FREE T4 1.17 NG/DL (0.89-1.76); GLOMERULAR FILTRATION RATE > 60.0 (>58); GLUCOSE, FASTING 122 MG/DL (60-100); POTASSIUM SERUM 4.2 MMOL/L (3.5-5.1); SODIUM LEVEL 140 MMOL/L (136-145); THYROID STIMULATING HORMONE 3.283 uIU/ML (0.55-4.78); TOTAL PROTEIN 7.2 G/DL (5.7-8.2)
[2024-06-03 14:50] LABS: FOLLICLE STIMULATING HORMONE 7.4 mIU/ML; LUTEINIZING HORMONE 2.3 mIU/ML
== END ==
LOC: M PLALAB 10:56
PROVIDERS: ATTEND Physician Assistant Medical
DX: N95.1 Menopausal and female climacteric states (principal); K90.41 Non-celiac gluten sensitivity; R14.0 Abdominal distension (gaseous)

== ENCOUNTER → 2024-07-16 | Outpatient (CLI) | payer OTHER ==
[2024-07-16 10:11] LABS: BASO # 0.1 10^3/uL (0.0-0.2); BASO % 0.7 % (0.0-1.0); EOS # 0.5 10^3/uL (0.0-0.5); EOS % 5.1 % (0.0-3.0); HEMATOCRIT 41.3 % (36.0-47.0); HEMOGLOBIN 13.8 g/dl (12.0-15.5); LYMPH # 2.3 10^3/uL (1.5-5.0); LYMPH % 23.6 % (24.0-44.0); MEAN CORPUSCULAR HEMOGLOBIN 30.6 pg (27.0-33.0); MEAN CORPUSCULAR HGB CONC 33.4 g/dl (32.0-36.5); MEAN CORPUSCULAR VOLUME 91.6 fl (80.0-96.0); MONO # 0.6 10^3/uL (0.0-0.8); MONO % 5.8 % (2.0-8.0); NEUTROPHILS # 6.2 10^3/uL (1.5-8.5); NEUTROPHILS % 64.4 % (36.0-66.0); PLATELET COUNT, AUTOMATED 286 10^3/uL (150-450); RED BLOOD COUNT 4.51 10^6/uL (4.00-5.40); WHITE BLOOD COUNT 9.6 10^3/uL (4.0-10.0)
== END ==
LOC: M LAB 08:41
PROVIDERS: ATTEND Physician Assistant Medical
DX: R10.13 Epigastric pain (principal)

== ENCOUNTER → 2024-07-23 | Outpatient (CLI) | payer OTHER ==
[~2024-07-23] MED LIST changes: +E-Z-GAS II EFFERVESCENT PACKET (SODIUM BICARB./CITRIC ACID/SIMETHICONE) As Ordered ONE; +E-Z-HD 98% w/w 340GM SUSP BTL As Ordered ONE; +E-Z-PAQUE 96% w/w SUSP 176GM BTL As Ordered ONE
== END ==
LOC: M RAD 09:26
PROVIDERS: ATTEND Physician Assistant Medical
DX: R13.19 Other dysphagia (principal)

== ENCOUNTER → 2024-08-06 | Outpatient (CLI) | payer OTHER ==
[~2024-08-06] MED LIST changes: -E-Z-GAS II EFFERVESCENT PACKET (SODIUM BICARB./CITRIC ACID/SIMETHICONE) As Ordered ONE; -E-Z-HD 98% w/w 340GM SUSP BTL As Ordered ONE; -E-Z-PAQUE 96% w/w SUSP 176GM BTL As Ordered ONE
[2024-08-06 15:46] LABS: C REACTIVE PROTEIN QUANTITATIV < 0.40 MG/DL (<1.0)
[2024-08-06 15:50] LABS: VITAMIN B12 LEVEL 759 PG/ML (211-911)
[2024-08-06 17:03] LABS: HEMOGLOBIN A1c 6.3 % (4.0-6.0)
[2024-08-10 09:31] LABS: ANA PATTERN Cytoplasmic (NEGATIVE); ANA SCREEN, IFA POSITIVE (NEGATIVE); ANA TITER > OR = 1:1280 titer (<1:40)
== END ==
LOC: M PLALAB 12:33
PROVIDERS: ATTEND Physician Assistant Medical
DX: R20.0 Anesthesia of skin (principal); R10.13 Epigastric pain; E11.9 Type 2 diabetes mellitus without complications

== ENCOUNTER → 2024-12-10 | Outpatient (CLI) | payer OTHER ==
[~2024-12-10] MED LIST changes: -ADV250INH INH; +ADVA1AER9 INH
[2024-12-10 10:41] LABS: BASO # 0.1 10^3/uL (0.0-0.2); BASO % 0.7 % (0.0-1.0); EOS # 0.5 10^3/uL (0.0-0.5); EOS % 4.9 % (0.0-3.0); HEMATOCRIT 42.2 % (36.0-47.0); HEMOGLOBIN 13.9 g/dl (12.0-15.5); LYMPH # 2.7 10^3/uL (1.5-5.0); MEAN CORPUSCULAR HGB CONC 32.9 g/dl (32.0-36.5); MEAN CORPUSCULAR VOLUME 91.1 fl (80.0-96.0); MONO # 0.6 10^3/uL (0.0-0.8); MONO % 5.5 % (2.0-8.0); NEUTROPHILS # 6.8 10^3/uL (1.5-8.5); NEUTROPHILS % 63.4 % (36.0-66.0); PLATELET COUNT, AUTOMATED 281 10^3/uL (150-450); RED BLOOD COUNT 4.63 10^6/uL (4.00-5.40); WHITE BLOOD COUNT 10.7 10^3/uL (4.0-10.0)
[2024-12-10 10:58] LABS: ALBUMIN 3.8 G/DL (3.2-5.2); ALKALINE PHOSPHATASE 74 U/L (35-104); ALT/SGPT 37 U/L (7.0-40); AST/SGOT 19 U/L (<34); BILIRUBIN,TOTAL 1.1 MG/DL (0.3-1.2); BLOOD UREA NITROGEN 11 MG/DL (9-23); CALCIUM LEVEL 9.1 MG/DL (8.5-10.1); CARBON DIOXIDE LEVEL 30 MMOL/L (20-31); CHLORIDE LEVEL 106 MMOL/L (98-107); CHOLESTEROL LEVEL 187 MG/DL (<200); CHOLESTEROL RISK RATIO 3.29 (<5); CREATININE FOR GFR 0.76 MG/DL (0.55-1.30); GLOMERULAR FILTRATION RATE > 60.0 (>51); GLUCOSE, FASTING 120 MG/DL (60-100); HDL CHOLESTEROL 56.7 MG/DL (>40); LDL CHOLESTEROL 100.9 MG/DL (<100); NON-HDL-C 130.3 MG/DL; POTASSIUM SERUM 4.7 MMOL/L (3.5-5.1); SODIUM LEVEL 141 MMOL/L (136-145); TRIGLYCERIDES LEVEL 147 MG/DL (<150)
[2024-12-10 10:59] LABS: FREE T4 1.05 NG/DL (0.89-1.76); THYROID STIMULATING HORMONE 2.298 uIU/ML (0.55-4.78)
[2024-12-10 11:02] LABS: HEMOGLOBIN A1c 6.2 % (4.0-6.0)
== END ==
LOC: M PLALAB 08:58
PROVIDERS: ATTEND Physician Assistant Medical
DX: K21.00 Gastro-esophageal reflux disease with esophagitis, without bleeding (principal); E11.9 Type 2 diabetes mellitus without complications; K76.0 Fatty (change of) liver, not elsewhere classified; F41.9 Anxiety disorder, unspecified; Z13.220 Encounter for screening for lipoid disorders

== ENCOUNTER → 2025-06-06 | Outpatient (CLI) | payer OTHER | LOC: M WHC 16:41 | PROVIDERS: ATTEND Physician Assistant Medical | DX: Z12.39 Encounter for other screening for malignant neoplasm of breast (principal); Z53.9 Procedure and treatment not carried out, unspecified reason ==

== ENCOUNTER → 2025-06-07 | Outpatient (CLI) | payer OTHER | LOC: M WHC 08:32 | PROVIDERS: ATTEND Physician Assistant Medical | DX: Z12.31 Encounter for screening mammogram for malignant neoplasm of breast (principal) ==

== ENCOUNTER → 2025-06-21 | Outpatient (CLI) | payer OTHER | LOC: M WHC 10:42 | PROVIDERS: ATTEND Physician Assistant Medical | DX: R92.8 Other abnormal and inconclusive findings on diagnostic imaging of breast (principal) | CPT/HCPCS: 76642; 77065; G0279 ==

== ENCOUNTER → 2025-09-06 | Outpatient (CLI) | payer OTHER ==
[2025-09-06 10:27] LABS: BASO # 0.1 10^3/uL (0.0-0.2); BASO % 0.8 % (0.0-1.0); EOS # 0.5 10^3/uL (0.0-0.5); EOS % 6.2 % (0.0-3.0); LYMPH # 2.1 10^3/uL (1.5-5.0); LYMPH % 24.0 % (24.0-44.0); MONO # 0.4 10^3/uL (0.0-0.8); MONO % 5.0 % (2.0-8.0); NEUTROPHILS # 5.5 10^3/uL (1.5-8.5); NEUTROPHILS % 63.3 % (36.0-66.0); PLATELET COUNT, AUTOMATED 346 10^3/uL (150-450)
[2025-09-06 10:49] LABS: ESTIMATED AVERAGE GLUCOSE 108.0 MG/DL (60-110)
== END ==
LOC: M PLALAB 08:35
PROVIDERS: ATTEND Physician Assistant Medical
DX: S02.5XXA Fracture of tooth (traumatic), initial encounter for closed fracture (principal); E11.9 Type 2 diabetes mellitus without complications